=== PATIENT | male | born 1950 | race Caucasian/White ===

== ENCOUNTER 2016-10-20 16:41 | Emergency (ER) | payer MEDICARE, MEDICAID ==
--- NOTE | 2016-10-20 17:03 | ER Document Report ---
ED Medical Screen (RME) - General Chief Complaint: Urinary Problem Stated Complaint: URINARY PROBLEM Notes: urinary complaint hasnt peed since 9am difficulty initiating a stream x 7 days I have greeted and performed a rapid initial assessment of this patient. A comprehensive ED assessment and evaluation of the patient, analysis of test results and completion of the medical decision making process will be conducted by additional ED providers.
[2016-10-20 18:10] LABS: APPEARANCE,URINE SLIGHTLY-CLOUDY; BILIRUBIN,URINE NEGATIVE (NEGATIVE); GLUCOSE, URINE NEGATIVE (NEGATIVE); KETONES,URINE NEGATIVE (NEGATIVE); LEUKOCYTE ESTERASE,URINE NEGATIVE (NEGATIVE); NITRITE,URINE NEGATIVE (NEGATIVE); PROTEIN,URINE NEGATIVE (NEGATIVE); URINE SPECIFIC GRAVITY 1.021; UROBILINOGEN,URINE NEGATIVE mg/dL (<2.0)
[2016-10-20 18:58] LABS: ABSOLUTE EOSINOPHILS # (AUTO) 0.1 10^3/uL (0.0-0.6); ABSOLUTE MONOCYTES (AUTO) 0.6 10^3/uL (0.1-1.4); ABSOLUTE NEUT (AUTO) 3.2 10^3/uL (1.7-8.2); BASOPHILS % (AUTO) 0.7 % (0-2); EOSINOPHILS % (AUTO) 1.1 % (0-6); HEMATOCRIT 44.6 % (37.9-51.0); HEMOGLOBIN 15.2 g/dL (13.5-17.0); LYMPHOCYTES % (AUTO) 34.8 % (13-45); MEAN CORPUSCULAR HEMOGLOBIN 32.6 pg (27.0-33.4); MEAN CORPUSCULAR HGB CONC 34.2 g/dL (32.0-36.0); MEAN CORPUSCULAR VOLUME 96 fl (80-97); MONOCYTES % (AUTO) 9.7 % (3-13); RED BLOOD COUNT 4.67 10^6/uL (4.35-5.55); RED CELL DISTRIBUTION WIDTH 13.5 % (11.5-14.0); SEGMENTED NEUTROPHILS % (AUTO) 53.7 % (42-78); WHITE BLOOD COUNT 5.9 10^3/uL (4.0-10.5)
--- NOTE | 2016-10-20 19:01 | ER Document Report ---
ED General - General Chief Complaint: Urinary Retention Stated Complaint: URINARY PROBLEM Mode of Arrival: Ambulatory Information source: Patient, Relative, Dr. Office Notes: 66-year-old male no previous history of urinary retention presents after primary care physician sent him in for evaluation for urinary tract. pt denies any fevers or chills nausea or vomtiing. pt notes that there is pressure sensation in the suprapubic region. TRAVEL OUTSIDE OF THE [place] IN LAST 30 DAYS: No - HPI Onset: Just prior to arrival Onset/Duration: Persistent Quality of pain: Achy, Pressure Severity: Mild Pain Level: 1 Associated symptoms: None Exacerbated by: Denies Relieved by: Denies Similar symptoms previously: No Recently seen / treated by doctor: Yes - Related Data Allergies/Adverse Reactions: No Known Allergies Allergy (Unverified 10/20/16 17:01) Past Medical History - Social History Smoking Status: Never Smoker Cigarette use (# per day): No Chew tobacco use (# tins/day): No Smoking Education Provided: No Frequency of alcohol use: None Drug Abuse: None Family History: Reviewed & Not Pertinent Patient has suicidal ideation: No Patient has homicidal ideation: No Renal/ Medical History: Denies: Hx Peritoneal Dialysis Review of Systems - Review of Systems Notes: REVIEW OF SYSTEMS: CONSTITUTIONAL : Denies fever, chills, or sweats. Denies recent illness. EENT: Denies eye, ear, throat, or mouth pain or symptoms. Denies nasal or sinus congestion or discharge. Denies throat, tongue, or mouth swelling or difficulty swallowing. CARDIOVASCULAR: Denies chest pain. Denies palpitations or racing or irregular heart beat. Denies ankle edema. RESPIRATORY: Denies cough, cold, or chest congestion. Denies shortness of breath, difficulty breathing, or wheezing. GASTROINTESTINAL: Denies abdominal pain or distention. Denies nausea, vomiting , or diarrhea. Denies blood in vomitus, stools, or per rectum. Denies black, tarry stools. Denies constipation. GENITOURINARY: admits ot urinary retention MUSCULOSKELETAL: Denies back or neck pain or stiffness. Denies joint pain or swelling. SKIN: Denies rash, lesions or sores. HEMATOLOGIC : Denies easy bruising or bleeding. LYMPHATIC: Denies swollen, enlarged glands. NEUROLOGICAL: Denies confusion or altered mental status. Denies passing out or loss of consciousness. Denies dizziness or lightheadedness. Denies headache. Denies weakness or paralysis or loss of use of either side. Denies problems with gait or speech. Denies sensory loss, numbness, or tingling. Denies seizures. PSYCHIATRIC: Denies anxiety or stress. Denies depression, suicidal ideation, or homicidal ideation. ALL OTHER SYSTEMS REVIEWED AND NEGATIVE. Dictation was performed using [employer] voice recognition software PHYSICAL EXAMINATION: GENERAL: Well-appearing, well-nourished and in no acute distress. HEAD: Atraumatic, normocephalic. EYES: Pupils equal round and reactive to light, extraocular movements intact, sclera anicteric, conjunctiva are normal. ENT: Nares patent, oropharynx clear without exudates. Moist mucous membranes. NECK: Normal range of motion, supple without lymphadenopathy LUNGS: Breath sounds clear to auscultation bilaterally and equal. No wheezes rales or rhonchi. HEART: Regular rate and rhythm without murmurs ABDOMEN: Soft, suprapubic pressure , darling placed 200 cc urine return Musculoskeletal: Normal range of motion, no pitting or edema. No cyanosis. NEUROLOGICAL: Cranial nerves grossly intact. Normal speech, normal gait. Normal sensory, motor exams PSYCH: Normal mood, normal affect. SKIN: Warm, Dry, normal turgor, no rashes or lesions noted. Physical Exam - Vital signs Vitals: Temp Pulse Resp BP Pulse Ox 98 F 70 20 136/104 H 100 10/20/16 17:02 10/20/16 17:02 10/20/16 17:02 10/20/16 17:02 10/20/16 17:02 Course - Re-evaluation Re-evalutation: 10/20/16 19:01 pt immediately placed darling 10/20/16 19:48 Approximately 200 mL of urine was removed, patient was sent for CT lab work urinalysis which noted no other significant abnormalities. Patient will be given a leg Darling bag as instructed them on instructions of how to use as well as very strict return precautions. Patient will be given follow-up with primary care physician and urology for removal of bag in 2-3 days I have explained that this may lead to a urinary tract infection as well After performing a Medical Screening Examination, I estimate there is LOW risk for ACUTE APPENDICITIS, BOWEL OBSTRUCTION, ACUTE CHOLECYSTITIS, PERFORATED DIVERTICULITIS, INCARCERATED HERNIA, PANCREATITIS, or PERFORATED ULCER, thus I consider the discharge disposition reasonable. Also, there is no evidence or peritonitis, sepsis, or toxicity. The patient and I have discussed the diagnosis and risks, and we agree with discharging home with close follow-up with the understanding that symptoms and presentations can change. We also discussed returning to the Emergency Department immediately if new or worsening symptoms occur. We have discussed the symptoms which are most concerning (e.g., bloody stool, fever, changing or worsening pain, intractable vomiting - standard verbal up date) that necessitate immediate return. - Vital Signs Vital signs: Temp Pulse Resp BP Pulse Ox 98 F 70 20 136/104 H 100 10/20/16 17:02 10/20/16 17:02 10/20/16 17:02 10/20/16 17:02 10/20/16 17:02 - Laboratory Result Diagrams: 10/20/16 18:40 10/20/16 18:40 Laboratory results interpreted by me: 10/20/16 10/20/16 17:55 18:40 BUN 28 H Urine Ascorbic Acid 40 H - Diagnostic Test Radiology reviewed: Image reviewed, Reports reviewed Discharge - Discharge Clinical Impression: Urinary retention Condition: Stable Disposition: HOME, SELF-CARE Instructions: Darling Catheter Care ([facility]) Referrals: MEGAN LEA FNP-C [Primary Care Provider] - Follow up in 3-5 days HOWARD TAVERAS MD [ACTIVE STAFF] - Follow up in 3-5 days
[2016-10-20 19:16] LABS: ALANINE AMINOTRANSFERASE 65 U/L (21-72); ALBUMIN 3.9 g/dL (3.5-5.0); ALKALINE PHOSPHATASE 70 U/L (38-126); ANION GAP 12 (5-19); ASPARTATE AMINO TRANSFERASE 26 U/L (17-59); BILIRUBIN,TOTAL 0.4 mg/dL (0.2-1.3); BLOOD UREA NITROGEN 28 mg/dL (7-20); CALCIUM 9.6 mg/dL (8.4-10.2); CARBON DIOXIDE 26 mmol/L (22-30); CHLORIDE 103 mmol/L (98-107); CREATININE RESULT 0.94 mg/dL (0.52-1.25); GLUCOSE 87 mg/dL (75-110); POTASSIUM 4.6 mmol/L (3.6-5.0); SODIUM 141.1 mmol/L (137-145); TOTAL PROTEIN 7.4 g/dL (6.3-8.2)
[2016-10-20 22:25] VITALS: BP 138/95
== END 2016-10-20 20:20 | disposition home or self-care (01) ==
LOC: ER 16:41
DX: R33.9 Retention of urine, unspecified (principal)
CPT/HCPCS: 36415; 51702; 74176; 80053; 81001; 85025; 87086; 99284

== ENCOUNTER 2017-10-09 19:51 | Emergency (ER) | payer MEDICARE, MEDICAID ==
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
[2017-10-10 00:51] VITALS: BP 104/71
== END 2017-10-10 09:59 | disposition home or self-care (01) ==
LOC: ER 19:51
DX: S00.212A Abrasion of left eyelid and periocular area, initial encounter (principal); Y04.0XXA Assault by unarmed brawl or fight, initial encounter; Y92.199 Unspecified place in other specified residential institution as the place of occurrence of the external cause; F03.91 Unspecified dementia, unspecified severity, with behavioral disturbance
CPT/HCPCS: 99284

== ENCOUNTER 2017-10-11 13:04 | Emergency (ER) | payer MEDICARE, MEDICAID ==
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
--- NOTE | 2017-10-11 14:30 | RADIOLOGY REPORT (SQ) ---
EXAM DESCRIPTION: KNEE RIGHT 4 VIEWS COMPLETED DATE/TIME: 10/11/2017 2:21 pm REASON FOR STUDY: knees gave out, yellow bruise right knee COMPARISON: None. NUMBER OF VIEWS: Four views. TECHNIQUE: AP, lateral, and both oblique radiographic images acquired of the right knee. LIMITATIONS: None. FINDINGS: MINERALIZATION: Normal. BONES: No acute fracture or dislocation. No worrisome bone lesions. JOINT: No effusion. SOFT TISSUES: No soft tissue swelling. No radio-opaque foreign body. OTHER: No other significant finding. IMPRESSION: NEGATIVE STUDY OF THE RIGHT KNEE. NO RADIOGRAPHIC EVIDENCE OF ACUTE INJURY. TECHNICAL DOCUMENTATION: JOB ID: [id number] [employer]- All Rights Reserved
--- NOTE | 2017-10-11 14:31 | RADIOLOGY REPORT (SQ) ---
EXAM DESCRIPTION: CHEST PA/LAT COMPLETED DATE/TIME: 10/11/2017 2:21 pm REASON FOR STUDY: cough COMPARISON: None. EXAM PARAMETERS: NUMBER OF VIEWS: two views TECHNIQUE: Digital Frontal and Lateral radiographic views of the chest acquired. RADIATION DOSE: NA LIMITATIONS: none FINDINGS: LUNGS AND PLEURA: Elevated right hemidiaphragm. No opacities, masses or pneumothorax. No pleural effusion. MEDIASTINUM AND HILAR STRUCTURES: No masses or contour abnormalities. HEART AND VASCULAR STRUCTURES: Heart normal size. No evidence for failure. BONES: No acute findings. HARDWARE: None in the chest. OTHER: No other significant finding. IMPRESSION: NO ACUTE RADIOGRAPHIC FINDING IN THE CHEST. TECHNICAL DOCUMENTATION: JOB ID: [id number] [employer]- All Rights Reserved
--- NOTE | 2017-10-11 14:40 | RADIOLOGY REPORT (SQ) ---
EXAM DESCRIPTION: CT HEAD WITHOUT COMPLETED DATE/TIME: 10/11/2017 2:31 pm REASON FOR STUDY: fall, head injury COMPARISON: None. TECHNIQUE: Axial images acquired through the brain without intravenous contrast. Images reviewed wi th bone, brain and subdural windows. Images stored on PACS. All CT scanners at this facility use dose modulation, iterative reconstruction, and/or weight based d osing when appropriate to reduce radiation dose to as low as reasonably achievable (ALARA). [facility]: Dose Right [facility]: CareDose [facility]: Dose Right [facility]: Teradose 4D [facility]: Smart [employer] RADIATION DOSE: CT Rad equipment meets quality standard of care and radiation dose reduction techniq ues were employed. CTDIvol: 28.0 mGy. DLP: 690 mGy-cm.mGy. LIMITATIONS: None. FINDINGS: VENTRICLES: Prominent. CEREBRUM: No masses. No hemorrhage. No midline shift. Areas of low density in the white matter mos t likely due to chronic micro-vascular ischemic change. No evidence for acute infarction. CEREBELLUM: No masses. No hemorrhage. No alteration of density. No evidence for acute infarction. EXTRAAXIAL SPACES: Age-related involutional change. No fluid collections. No masses. ORBITS AND GLOBE: No intra- or extraconal masses. Normal contour of globe without masses. CALVARIUM: No fracture. PARANASAL SINUSES: No fluid or mucosal thickening. SOFT TISSUES: Posterior scalp swelling. OTHER: No other significant finding. IMPRESSION: CHRONIC CHANGES OF ATROPHY AND MICROVASCULAR ISCHEMIA. POSTERIOR SCALP SWELLING. OTHER JC NO ACUTE PROCESS. EVIDENCE OF ACUTE STROKE: NO. TECHNICAL DOCUMENTATION: JOB ID: [id number] Quality ID # [id number]: Final reports with documentation of one or more dose reduction techniques (e.g., Au tomated exposure control, adjustment of the mA and/or kV according to patient size, use of iterative reconstruction technique) 2010 [employer]- All Rights Reserved
--- NOTE | 2017-10-11 14:42 | RADIOLOGY REPORT (SQ) ---
EXAM DESCRIPTION: CT CERVICAL SPINE WITHOUT COMPLETED DATE/TIME: 10/11/2017 2:31 pm REASON FOR STUDY: fall, head injury COMPARISON: None. TECHNIQUE: Axial images acquired through the cervical spine without intravenous contrast. Images re viewed with lung, soft tissue and bone windows. Reconstructed coronal and sagittal MPR images review ed. Images stored on PACS. All CT scanners at this facility use dose modulation, iterative reconstruction, and/or weight based d osing when appropriate to reduce radiation dose to as low as reasonably achievable (ALARA). [facility]: Dose Right [facility]: CareDose [facility]: Dose Right [facility]: Teradose 4D [facility]: [employer] RADIATION DOSE: CT Rad equipment meets quality standard of care and radiation dose reduction techniq ues were employed. CTDIvol: 22.6 mGy. DLP: 474 mGy-cm. mGy. LIMITATIONS: None. FINDINGS: ALIGNMENT: Anatomic. MINERALIZATION: Normal. VERTEBRAL BODIES: No fractures or dislocation. DISCS: No significant disc disease. FACETS, LATERAL MASSES, POSTERIOR ELEMENTS: No fractures. No dislocation. No acute findings. HARDWARE: None in the spine. VISUALIZED RIBS: No fractures. LUNG APICES AND SOFT TISSUES: No significant or acute findings. OTHER: No other significant finding. IMPRESSION: NO ACUTE OR SIGNIFICANT FINDINGS IN THE CERVICAL SPINE. TECHNICAL DOCUMENTATION: JOB ID: [id number] Quality ID # [id number]: Final reports with documentation of one or more dose reduction techniques (e.g., Au tomated exposure control, adjustment of the mA and/or kV according to patient size, use of iterative reconstruction technique) 2010 [email or web address]- All Rights Reserved
[2017-10-11] MEDS ORDERED: ALBUTEROL SULFATE 0.083% NEB 2.5 MG/3 ML AMPUL NEB ONE (14:48)
[2017-10-11 14:55] LABS: ABSOLUTE BASOPHILS # (AUTO) 0.1 10^3/uL (0.0-0.2); ABSOLUTE EOSINOPHILS # (AUTO) 0.1 10^3/uL (0.0-0.6); ABSOLUTE LYMPHOCYTES (AUTO) 1.3 10^3/uL (0.5-4.7); ABSOLUTE MONOCYTES (AUTO) 0.8 10^3/uL (0.1-1.4); ABSOLUTE NEUT (AUTO) 6.7 10^3/uL (1.7-8.2); BASOPHILS % (AUTO) 0.7 % (0-2); LYMPHOCYTES % (AUTO) 14.4 % (13-45); MEAN CORPUSCULAR HEMOGLOBIN 32.8 pg (27.0-33.4); MEAN CORPUSCULAR HGB CONC 34.8 g/dL (32.0-36.0); MEAN CORPUSCULAR VOLUME 94 fl (80-97); MONOCYTES % (AUTO) 9.2 % (3-13); PLATELET COUNT 186 10^3/uL (150-450); RED BLOOD COUNT 4.56 10^6/uL (4.35-5.55); RED CELL DISTRIBUTION WIDTH 13.2 % (11.5-14.0); SEGMENTED NEUTROPHILS % (AUTO) 74.7 % (42-78); TOTAL CELLS COUNTED % (AUTO) 100 %
[2017-10-11 15:12] LABS: ANION GAP 11 (5-19); BLOOD UREA NITROGEN 18 mg/dL (7-20); CALCIUM 10.1 mg/dL (8.4-10.2); CARBON DIOXIDE 26 mmol/L (22-30); CHLORIDE 103 mmol/L (98-107); GLUCOSE 108 mg/dL (75-110); POTASSIUM 4.5 mmol/L (3.6-5.0); SODIUM 140.4 mmol/L (137-145)
[2017-10-11 16:59] VITALS: BP 112/62
== END 2017-10-11 16:55 | disposition home or self-care (01) ==
LOC: ER 13:04
DX: S00.03XA Contusion of scalp, initial encounter (principal); W19.XXXA Unspecified fall, initial encounter; Y93.89 Activity, other specified; Y92.199 Unspecified place in other specified residential institution as the place of occurrence of the external cause; R05 Cough
CPT/HCPCS: 99285; 36415; 85025; 80048; 71046; 73564; 70450; 72125; A9270

== ENCOUNTER 2017-10-12 17:22 | Emergency (ER) | payer MEDICARE, MEDICAID ==
[2017-10-12] MEDS ORDERED: NORMAL SALINE 1000 ML 1,000 ML IV ONE (17:57)
[2017-10-12] MEDS ORDERED: IPRATROPIUM/ALBUTEROL 0.5-2.5 MG/3 ML AMPUL NEB ONE ×3 (18:05→23:08)
--- NOTE | 2017-10-12 18:06 | ER Document Report ---
ED Flu Like - General Chief Complaint: Flu Symptoms Stated Complaint: FLU LIKE SYMPTOMS Time Seen by Provider: 10/12/17 17:47 Mode of Arrival: Medic Information source: Transfer Record TRAVEL OUTSIDE OF THE [place] IN LAST 30 DAYS: No - HPI Notes: 67-year-old male with anxiety dementia and depression presents with flulike symptoms. Unclear when this started. From what I can tell it started yesterday. Patient has severe dementia so history is limited. Reading the transfer notes it says the patient was sent here 2 times prior for the same thing but reviewing records the first 1 was for an anger outbursts and a trauma evaluation the second time was for some weakness in his legs and a fall again for trauma. There was note of cough at that time. Apparently now the patient is having a significant fever and coughing is worse. Records provided by the [facility] are somewhat limited. Patient denies any pain to me though again history is somewhat limited due to his dementia and confusion. There has been no reported vomiting or diarrhea. - Related Data Allergies/Adverse Reactions: No Known Allergies Allergy (Verified 10/11/17 13:06) Past Medical History - Social History Smoking Status: Unknown if Ever Smoked Frequency of alcohol use: None Drug Abuse: None Family History: Reviewed & Not Pertinent Patient has suicidal ideation: No Patient has homicidal ideation: No Renal/ Medical History: Denies: Hx Peritoneal Dialysis Psychiatric Medical History: Reports: Hx Dementia, Hx Depression Physical Exam - Vital signs Vitals: Temp Pulse Resp BP Pulse Ox 100.2 F 125 H 26 H 127/90 H 88 L 10/12/17 17:31 10/12/17 17:31 10/12/17 17:31 10/12/17 17:31 10/12/17 17:31 Interpretation: Febrile - Notes Notes: GENERAL: VS as per nursing doc. Well-appearing, well-nourished and in no acute distress. Smiling and pleasant. Cough noted HEAD: Atraumatic, normocephalic. EYES: Sclera anicteric, no conjunctival injection or discharge. ENT: Nares patent, oropharynx clear without exudates, moist mucous membranes. NECK: Normal range of motion, supple without lymphadenopathy. LUNGS: Breath sounds coarse with rhonchi, very mild wheezing HEART: Tachycardic but regular rhythm without murmurs. ABDOMEN: Soft, non-tender. EXTREMITIES: No unilateral edema. No calf tenderness NEUROLOGICAL: Normal speech. Normal sensory and motor exams. No gross cerebellar abnormalities. PSYCH: Normal mood, normal affect. Oriented 1. Directable, pleasant and smiling. SKIN: Warm, dry. Course - Re-evaluation Re-evalutation: 10/12/17 21:12 Patient has a normal white blood cell count. PO2 in the 80s on 2 L/min nasal cannula. He is maintaining his oxygen saturations for the most part. We will go on and treat him for bronchitis/pneumonia at this point and further observe him with further breathing treatments as well as Solu-Medrol. 10/12/17 22:42 Patient has had multiple nebs in the emergency department. His wheezing does seem better, I can hear crackles now consistent with pneumonia. He does not use oxygen at the [facility]. We will watch his oxygen saturations if they decreased like I think they probably will, we will discuss admission with the hospitalist. 10/12/17 23:52 We waited some time after his last DuoNeb in the patient's PO2 was in the 60s on room air with an oxygen saturation of 92.5%. We will treat him with Levaquin such as this would be pneumonia. He has been given an inhaler in the emergency department with instructions on how to use as well as instructions for [facility]. We will finish a course of prednisone for him. He has been calm and cooperative here and passed a road test. - Vital Signs Vital signs: Temp Pulse Resp BP Pulse Ox 98.0 F 125 H 21 H 108/75 87 L 10/12/17 23:01 10/12/17 17:31 10/12/17 23:01 10/12/17 23:00 10/12/17 23:01 - Laboratory Result Diagrams: 10/12/17 18:15 10/12/17 18:15 Laboratory results interpreted by me: 10/12/17 10/12/17 10/12/17 18:15 18:15 18:15 Plt Count 144 L Lymphocytes % (Manual) 3 L ABG pO2 ABG HCO3 26.2 H ABG Total CO2 27.4 H ABG O2 Saturation Sodium 136.6 L Glucose 145 H 10/12/17 23:26 Plt Count Lymphocytes % (Manual) ABG pO2 62.0 L ABG HCO3 ABG Total CO2 ABG O2 Saturation 92.5 L Sodium Glucose - Diagnostic Test Radiology reviewed: Image reviewed - Atelectasis, no clear pneumonia, Reports reviewed Discharge - Discharge Clinical Impression: Bronchitis Condition: Good Disposition: HOME-SNF (ED ONLY) Additional Instructions: Use the albuterol inhaler 2 puffs every 6 hours while awake and as needed for wheezing or breathing difficulty. Expect fever for a few days despite us treating this illness like this is pneumonia with the antibiotic Levaquin. Though the flu tests are not perfect, your flu screen here was negative. Return for worsening or concern. May use Mucinex DM/Robitussin-DM or similar for cough. Stay well hydrated with clear liquids. Follow-up with your primary care provider in the next 24-48 hours. Prescriptions: Levofloxacin [Levaquin 750 mg Tablet] 750 mg PO DAILY #9 tablet Prednisone [Deltasone 20 mg Tablet] 2 tab PO DAILY 5 Days #10 tablet
[2017-10-12 18:47] LABS: ARTERIAL BLOOD H2CO3 1.18 mmol/L (1.05-1.35); ARTERIAL BLOOD HCO3 26.2 mmol/L (20-26); ARTERIAL BLOOD O2 SATURATION 96.3 % (94-98); ARTERIAL BLOOD PCO2 39.3 mmHg (35-45); ARTERIAL BLOOD PH 7.44 (7.35-7.45); ARTERIAL BLOOD PO2 80.5 mmHg (80-100); ARTERIAL BLOOD TOTAL CO2 27.4 mmol/L (23-27)
[2017-10-12 18:50] LABS: ARTERIAL BLOOD FIO2 2L; HEMATOCRIT 41.9 % (37.9-51.0); HEMOGLOBIN 14.4 g/dL (13.5-17.0); MEAN CORPUSCULAR HEMOGLOBIN 32.3 pg (27.0-33.4); MEAN CORPUSCULAR HGB CONC 34.3 g/dL (32.0-36.0); MEAN CORPUSCULAR VOLUME 94 fl (80-97); PLATELET COUNT 144 10^3/uL (150-450); RED BLOOD COUNT 4.44 10^6/uL (4.35-5.55); RED CELL DISTRIBUTION WIDTH 13.4 % (11.5-14.0); WHITE BLOOD COUNT 7.6 10^3/uL (4.0-10.5)
--- NOTE | 2017-10-12 19:00 | RADIOLOGY REPORT (SQ) ---
EXAM DESCRIPTION: CHEST PA/LAT COMPLETED DATE/TIME: 10/12/2017 6:41 pm REASON FOR STUDY: Fever COMPARISON: 10/11/2017. EXAM PARAMETERS: NUMBER OF VIEWS: two views TECHNIQUE: Digital Frontal and Lateral radiographic views of the chest acquired. RADIATION DOSE: NA LIMITATIONS: none FINDINGS: LUNGS AND PLEURA: Low lung volumes. Faint streaky densities in the lung bases. No pleura l effusion. No pneumothorax. Incidental azygos lobe. MEDIASTINUM AND HILAR STRUCTURES: No masses or contour abnormalities. HEART AND VASCULAR STRUCTURES: Heart normal size. No evidence for failure. BONES: No acute findings. HARDWARE: None in the chest. OTHER: No other significant finding. IMPRESSION: BASILAR ATELECTASIS. TECHNICAL DOCUMENTATION: JOB ID: [id number]- All Rights Reserved
[2017-10-12 19:06] LABS: ALANINE AMINOTRANSFERASE 58 U/L (21-72); ALBUMIN 4.2 g/dL (3.5-5.0); ALKALINE PHOSPHATASE 68 U/L (38-126); ANION GAP 13 (5-19); ASPARTATE AMINO TRANSFERASE 55 U/L (17-59); BILIRUBIN,DIRECT 0.2 mg/dL (0.0-0.4); BILIRUBIN,TOTAL 0.5 mg/dL (0.2-1.3); BLOOD UREA NITROGEN 19 mg/dL (7-20); CALCIUM 9.3 mg/dL (8.4-10.2); CARBON DIOXIDE 25 mmol/L (22-30); CHLORIDE 99 mmol/L (98-107); GLUCOSE 145 mg/dL (75-110); INTERNATIONAL RATION (INR) 1.03; POTASSIUM 4.4 mmol/L (3.6-5.0); PROTHROMBIN TIME 14.2 SEC (11.4-15.4); SODIUM 136.6 mmol/L (137-145); TOTAL PROTEIN 7.2 g/dL (6.3-8.2)
[2017-10-12 19:17] LABS: ABSOLUTE LYMPHOCYTES# (MANUAL) 0.5 10^3/uL (0.5-4.7); ABSOLUTE MONOCYTES # (MANUAL) 0.9 10^3/uL (0.1-1.4); ABSOLUTE NEUTROPHILS# (MANUAL) 6.2 10^3/uL (1.7-8.2); BAND NEUTROPHILS % (MANUAL) 4 % (3-5); BASOPHILS % (MANUAL) 0 % (0-2); EOSINOPHILS % (MANUAL) 0 % (0-6); LYMPHOCYTES % (MANUAL) 3 % (13-45); MONOCYTES % (MANUAL) 12 % (3-13); SEGMENTED NEUTROPHILS % (MAN) 78 % (42-78); TOTAL CELLS COUNTED 100
[2017-10-12 19:18] LABS: PLATELET COMMENT ADEQUATE; RBC MORPHOLOGY COMMENT NORMO-CYTIC/CHROMIC
[2017-10-12 19:21] LABS: A TYPE INFLUENZA AG NEGATIVE (NEGATIVE); B INFLUENZA AG NEGATIVE (NEGATIVE)
[2017-10-12] MEDS ORDERED: LEVOFLOXACIN 750 MG TABLET PO ONE (20:44)
[2017-10-12] MEDS ORDERED: ALBUTEROL SULFATE HFA (90 MCG/PUFF) 8 GM MDI (1 MDI/ER DISP) IH PRN (20:51)
[2017-10-12] MEDS ORDERED: ACETAMINOPHEN 325 MG TABLET PO ONE (20:51)
[2017-10-12] MEDS ORDERED: ACETAMINOPHEN SUSP 160 MG/5 ML ORAL SYRING PO ONE (20:52)
[2017-10-12] MEDS ORDERED: METHYLPREDNISOLONE INJ 125 MG/2 ML SDV IV ONE (21:06)
[2017-10-12 23:46] LABS: ARTERIAL BLOOD H2CO3 1.07 mmol/L (1.05-1.35); ARTERIAL BLOOD HCO3 22.8 mmol/L (20-26); ARTERIAL BLOOD O2 SATURATION 92.5 % (94-98); ARTERIAL BLOOD PCO2 35.6 mmHg (35-45); ARTERIAL BLOOD PH 7.43 (7.35-7.45); ARTERIAL BLOOD TOTAL CO2 23.9 mmol/L (23-27)
[2017-10-12 23:47] LABS: ARTERIAL BLOOD FIO2 ROOM AIR
[2017-10-13 02:27] VITALS: BP 104/79
== END 2017-10-13 02:47 ==
LOC: ER 17:22
DX: J40 Bronchitis, not specified as acute or chronic (principal); F03.90 Unspecified dementia, unspecified severity, without behavioral disturbance, psychotic disturbance, mood disturbance, and anxiety; R50.9 Fever, unspecified; R05 Cough; R00.0 Tachycardia, unspecified
CPT/HCPCS: 94640 ×2; 99284; 96361; 96374; 36415; 87040; 82803; 85025; 85610; 87077; 80053; 83605; 87804; 71046; J2930; J7030; A9270 ×3; J3490; 87186; J7620

== ENCOUNTER 2017-10-29 18:54 | Emergency (ER) | payer MEDICARE, MEDICAID ==
[2017-10-29 19:10] VITALS: BP 125/89
--- NOTE | 2017-10-29 20:29 | ER Document Report ---
ED Medical Screen (RME) - General Chief Complaint: Diarrhea Stated Complaint: DIARRHEA Time Seen by Provider: 10/29/17 20:27 Mode of Arrival: Medic Information source: Patient, Relative Notes: 67-year-old male presents to ED for diarrhea all day. He is a resident at [facility]. He is on Levaquin and Tamiflu at [facility]. He denies any pain or discomfort at this time. He denies any nausea or vomiting at this time. Lung sounds are clear bowel sounds are active. I have greeted and performed a rapid initial assessment of this patient. A comprehensive ED assessment and evaluation of the patient, analysis of test results and completion of medical decision making process will be conducted by an additional ED providers. TRAVEL OUTSIDE OF THE [place] IN LAST 30 DAYS: No - Related Data Allergies/Adverse Reactions: No Known Allergies Allergy (Verified 10/29/17 18:56) Past Medical History Renal/ Medical History: Denies: Hx Peritoneal Dialysis Psychiatric Medical History: Reports: Hx Dementia, Hx Depression Physical Exam - Vital signs Vitals: Temp Pulse Resp BP Pulse Ox 98.5 F 116 H 20 125/89 H 95 10/29/17 19:04 10/29/17 19:04 10/29/17 19:04 10/29/17 19:04 10/29/17 19:04 Course - Vital Signs Vital signs: Temp Pulse Resp BP Pulse Ox 98.5 F 116 H 20 125/89 H 95 10/29/17 19:04 10/29/17 19:04 10/29/17 19:04 10/29/17 19:04 10/29/17 19:04
[2017-10-29 21:15] LABS: ABSOLUTE LYMPHOCYTES (AUTO) 1.3 10^3/uL (0.5-4.7); ABSOLUTE MONOCYTES (AUTO) 0.7 10^3/uL (0.1-1.4); ABSOLUTE NEUT (AUTO) 4.9 10^3/uL (1.7-8.2); BASOPHILS % (AUTO) 0.5 % (0-2); EOSINOPHILS % (AUTO) 0.6 % (0-6); HEMOGLOBIN 15.6 g/dL (13.5-17.0); LYMPHOCYTES % (AUTO) 18.4 % (13-45); MEAN CORPUSCULAR HEMOGLOBIN 32.8 pg (27.0-33.4); MEAN CORPUSCULAR HGB CONC 34.8 g/dL (32.0-36.0); MEAN CORPUSCULAR VOLUME 94 fl (80-97); PLATELET COUNT 279 10^3/uL (150-450); RED BLOOD COUNT 4.78 10^6/uL (4.35-5.55); RED CELL DISTRIBUTION WIDTH 13.1 % (11.5-14.0); SEGMENTED NEUTROPHILS % (AUTO) 70.5 % (42-78); TOTAL CELLS COUNTED % (AUTO) 100 %
[2017-10-29 21:34] LABS: ALANINE AMINOTRANSFERASE 91 U/L (21-72); ALBUMIN 3.9 g/dL (3.5-5.0); ALKALINE PHOSPHATASE 68 U/L (38-126); ANION GAP 11 (5-19); ASPARTATE AMINO TRANSFERASE 43 U/L (17-59); BILIRUBIN,DIRECT 0.4 mg/dL (0.0-0.4); BILIRUBIN,TOTAL 0.4 mg/dL (0.2-1.3); BLOOD UREA NITROGEN 10 mg/dL (7-20); CARBON DIOXIDE 28 mmol/L (22-30); CHLORIDE 98 mmol/L (98-107); GLUCOSE 118 mg/dL (75-110); POTASSIUM 3.8 mmol/L (3.6-5.0); SODIUM 137.4 mmol/L (137-145); TOTAL PROTEIN 7.8 g/dL (6.3-8.2)
--- NOTE | 2017-10-29 23:18 | ER Document Report ---
ED General - General Chief Complaint: Diarrhea Stated Complaint: DIARRHEA Time Seen by Provider: 10/29/17 20:27 Mode of Arrival: Medic Notes: 67-year-old male brought to the emergency department by EMS from an assisted living facility accompanied by his sister for suspicion of C. difficile. Patient has apparently been having diarrhea today. Patient cannot provide me with any other history and the [facility] did not send in any other history either. Patient does not recall having diarrhea, patient denies any pain. Patient has not had a bowel movement since he arrived in the emergency department 4 hours ago. Patient has been apparently on Tamiflu and Levaquin recently. Diagnosed with the flu within the past 2 weeks. TRAVEL OUTSIDE OF THE [place] IN LAST 30 DAYS: No - Related Data Allergies/Adverse Reactions: No Known Allergies Allergy (Verified 10/29/17 18:56) Past Medical History - General Information source: Patient, Relative - Social History Smoking Status: Former Smoker Chew tobacco use (# tins/day): No Frequency of alcohol use: None Drug Abuse: None Lives with: Other - Assisted-living Family History: Reviewed & Not Pertinent Patient has suicidal ideation: No Patient has homicidal ideation: No Renal/ Medical History: Denies: Hx Peritoneal Dialysis Psychiatric Medical History: Reports: Hx Dementia, Hx Depression Review of Systems - Review of Systems Constitutional: No symptoms reported Gastrointestinal: See HPI, Diarrhea. denies: Vomiting -: Yes All other systems reviewed and negative Physical Exam - Vital signs Vitals: Temp Pulse Resp BP Pulse Ox 98.5 F 116 H 20 125/89 H 95 10/29/17 19:04 10/29/17 19:04 10/29/17 19:04 10/29/17 19:04 10/29/17 19:04 Notes: Tachycardic on arrival, no current tachycardia, heart rate approximately 80 at the bedside. - Notes Notes: GENERAL: Alert, pleasant. No acute distress. HEAD: Normocephalic, atraumatic EYES: Pupils equal, round and reactive to light, extraocular movements intact. ENT: Oral mucosa moist, tongue midline. NECK: Full range of motion, supple, trachea midline. LUNGS: Clear to auscultation bilaterally, no wheezes, rales or rhonchi, no respiratory distress. HEART: Regular rate and rhythm, no murmurs, gallops, rubs. ABDOMEN: Soft, nontender, nondistended, bowel sounds present in all 4 quadrants. EXTREMITIES: Moves all 4 extremities spontaneously, no edema, radial and dorsalis pedis pulses 2/4 bilaterally. No cyanosis. NEUROLOGICAL: Alert and oriented to person and place, not to time, this is baseline per sister, normal speech, no facial droop biceps and patellar DTRs 2+ bilaterally. PSYCH: Normal mood, normal affect. SKIN: Warm, Dry, normal turgor, no rashes or lesions noted. Course - Re-evaluation Re-evalutation: 10/29/17 23:18 CBC unremarkable, CMP unremarkable, no evidence of dehydration, patient has not been able to provide a stool sample since he arrived in the emergency department for an half hours ago. This makes it highly unlikely that he has C. difficile. Is more likely that he is either experiencing a medication side effect from the Levaquin and the Tamiflu or he is at the tail end of the influenza illness that he was diagnosed with recently. Either way patient does not need antibiotics for C. difficile. Patient will be sent back to the assisted living facility with a stool specimen cup. - Vital Signs Vital signs: Temp Pulse Resp BP Pulse Ox 98.5 F 116 H 20 125/89 H 95 10/29/17 19:04 10/29/17 19:04 10/29/17 19:04 10/29/17 19:04 10/29/17 19:04 - Laboratory Result Diagrams: 10/29/17 20:40 10/29/17 20:40 Laboratory results interpreted by me: 10/29/17 20:40 Glucose 118 H ALT 91 H Discharge - Discharge Clinical Impression: Diarrhea Qualifiers: Diarrhea type: unspecified type Qualified Code(s): R19.7 - Diarrhea, unspecified Condition: Stable Disposition: HOME, SELF-CARE Additional Instructions: Today your white blood cell count was normal and you did not have diarrhea while in the emergency department. This makes it very unlikely that she would have C. difficile diarrhea. If you have another loose bowel movement please collect it and put it in the cup. The assisted living facility can send it to the lab to have it tested for C. difficile diarrhea. Please return for fevers, blood in the stool, altered mental status or any new or concerning symtpoms. Forms: Follow-Up Laboratory Testing Referrals: LEONIE DAMICO MD [ACTIVE STAFF] - Follow up as needed
== END 2017-10-30 00:09 | disposition home or self-care (01) ==
LOC: ER 18:54
DX: R19.7 Diarrhea, unspecified (principal); Z87.891 Personal history of nicotine dependence
CPT/HCPCS: 36415; 80053; 85025; 99285

== ENCOUNTER 2017-11-05 09:10 | Emergency (ER) | payer MEDICARE, MEDICAID ==
--- NOTE | 2017-11-05 09:59 | RADIOLOGY REPORT (SQ) ---
EXAM DESCRIPTION: CT HEAD WITHOUT COMPLETED DATE/TIME: 11/05/2017 9:52 am REASON FOR STUDY: fall COMPARISON: 10/11/2017 TECHNIQUE: Axial images acquired through the brain without intravenous contrast. Images reviewed wi th bone, brain and subdural windows. Images stored on PACS. All CT scanners at this facility use dose modulation, iterative reconstruction, and/or weight based d osing when appropriate to reduce radiation dose to as low as reasonably achievable (ALARA). [facility]: Dose Right [facility]: CareDose [facility]: Dose Right [facility]: Teradose 4D [facility]: [employer] RADIATION DOSE: CT Rad equipment meets quality standard of care and radiation dose reduction techniq ues were employed. CTDIvol: 64.6 mGy. DLP: 1421 mGy-cm.mGy. LIMITATIONS: Patient motion. FINDINGS: VENTRICLES: Prominent. CEREBRUM: No masses. No hemorrhage. No midline shift. Areas of low density in the white matter mos t likely due to chronic micro-vascular ischemic change. No evidence for acute infarction. CEREBELLUM: No masses. No hemorrhage. No alteration of density. No evidence for acute infarction. EXTRAAXIAL SPACES: Age-related involutional change. No fluid collections. No masses. ORBITS AND GLOBE: No intra- or extraconal masses. Normal contour of globe without masses. CALVARIUM: No fracture. PARANASAL SINUSES: No fluid or mucosal thickening. SOFT TISSUES: No mass or hematoma. OTHER: No other significant finding. IMPRESSION: CHRONIC CHANGES OF ATROPHY AND MICROVASCULAR ISCHEMIA. NO ACUTE PROCESS. EVIDENCE OF ACUTE STROKE: NO. TECHNICAL DOCUMENTATION: JOB ID: [id number] Quality ID # [id number]: Final reports with documentation of one or more dose reduction techniques (e.g., Au tomated exposure control, adjustment of the mA and/or kV according to patient size, use of iterative reconstruction technique) 2010 [employer]- All Rights Reserved
--- NOTE | 2017-11-05 10:50 | ER Document Report ---
ED General - General Chief Complaint: Fall Stated Complaint: FALL LEG PAIN Time Seen by Provider: 11/05/17 09:54 TRAVEL OUTSIDE OF THE [place] IN LAST 30 DAYS: No - HPI Patient complains to provider of: Unwitnessed fall Notes: Patient coming in from local assisted living facility for unwitnessed fall. Patient was found ground. Patient has obvious abrasion to the nasal bridge. Otherwise patient resting comfortably. Patient has no complaints denies any bony point tenderness. Moving all 4 extremities. Most of the HPI is obtained by EMS which patient confirms story of unwitnessed fall. - Related Data Allergies/Adverse Reactions: No Known Allergies Allergy (Verified 10/29/17 18:56) Past Medical History - Social History Smoking Status: Unknown if Ever Smoked Chew tobacco use (# tins/day): No Frequency of alcohol use: None Drug Abuse: None Family History: Reviewed & Not Pertinent Patient has suicidal ideation: No Patient has homicidal ideation: No Renal/ Medical History: Denies: Hx Peritoneal Dialysis Psychiatric Medical History: Reports: Hx Dementia, Hx Depression Review of Systems - Review of Systems -: Yes ROS unobtainable due to patient's medical condition - Dementia Physical Exam - Vital signs Vitals: Temp Pulse Resp BP Pulse Ox 98.0 F 91 16 122/79 92 11/05/17 09:26 11/05/17 09:26 11/05/17 09:26 11/05/17 09:26 11/05/17 09:26 Course - Re-evaluation Re-evalutation: 11/05/17 11:01 CT of the head was negative. Patient has Steri-Strips placed to his nose for his abrasion. Patient will be discharged home. - Vital Signs Vital signs: Temp Pulse Resp BP Pulse Ox 98.0 F 91 16 122/79 92 11/05/17 09:26 11/05/17 09:26 11/05/17 09:26 11/05/17 09:26 11/05/17 09:26 Discharge - Discharge Clinical Impression: Nasal bridge abrasion Fall Qualifiers: Encounter type: initial encounter Qualified Code(s): W19.XXXA - Unspecified fall, initial encounter Condition: Good Disposition: HOME, SELF-CARE Instructions: Abrasions of the Face ([facility]), Care of Steri-Strip Closure ([facility]) Additional Instructions: Patient was seen and evaluated at the fall. Physical examination did not reveal any abrasion to the patient's nose which was cared for by Steri-Strips. Because of head traumaPathology except for a slight we did CAT scan the patient' s head which was negative. Patient will be discharged back to her facility please monitor the patient for falls create a safe environment to prevent falls.
[2017-11-05 11:39] VITALS: BP 123/90
== END 2017-11-05 11:30 | disposition home or self-care (01) ==
LOC: ER 09:10
DX: S00.31XA Abrasion of nose, initial encounter (principal); W19.XXXA Unspecified fall, initial encounter; Y92.099 Unspecified place in other non-institutional residence as the place of occurrence of the external cause; F03.90 Unspecified dementia, unspecified severity, without behavioral disturbance, psychotic disturbance, mood disturbance, and anxiety
CPT/HCPCS: 70450; 99284

== ENCOUNTER 2017-11-19 10:29 | Emergency (ER) | payer MEDICARE, MEDICAID ==
--- NOTE | 2017-11-19 11:20 | ER Document Report ---
ED General - General Chief Complaint: Arm Injury Stated Complaint: FALL HEAD PAIN Time Seen by Provider: 11/19/17 10:38 Notes: He states that he fell. Denies any pain other than some mild pain in the scalp. No loss consciousness. No other injuries. Patient transported by ambulance. Underlying dementia. TRAVEL OUTSIDE OF THE [place] IN LAST 30 DAYS: No - HPI Onset: Just prior to arrival Severity: None Pain Level: Denies Associated symptoms: None - Related Data Allergies/Adverse Reactions: No Known Allergies Allergy (Verified 11/19/17 11:16) Past Medical History - General Information source: [facility] Records - Social History Smoking Status: Unknown if Ever Smoked Chew tobacco use (# tins/day): No Frequency of alcohol use: None Drug Abuse: None Lives with: [facility] Family History: Reviewed & Not Pertinent Patient has suicidal ideation: No Patient has homicidal ideation: No Renal/ Medical History: Denies: Hx Peritoneal Dialysis Psychiatric Medical History: Reports: Hx Dementia, Hx Depression Review of Systems - Review of Systems Constitutional: No symptoms reported EENT: No symptoms reported Cardiovascular: No symptoms reported Respiratory: No symptoms reported Gastrointestinal: No symptoms reported Genitourinary: No symptoms reported Male Genitourinary: No symptoms reported Musculoskeletal: No symptoms reported Skin: No symptoms reported Hematologic/Lymphatic: No symptoms reported Neurological/Psychological: No symptoms reported Physical Exam - Vital signs Vitals: Temp Pulse Resp BP Pulse Ox 98.1 F 104 H 18 111/76 95 11/19/17 11:13 11/19/17 11:13 11/19/17 11:13 11/19/17 11:13 11/19/17 11:13 Interpretation: Normal - General General appearance: Appears well, Alert - HEENT Head: Normocephalic, Other - Small contusion on the right occipital parietal area of the scalp. No obvious lacerations. Eyes: Normal Pupils: PERRL - Respiratory Respiratory status: No respiratory distress Chest status: Nontender Breath sounds: Normal Chest palpation: Normal - Cardiovascular Rhythm: Regular Heart sounds: Normal auscultation Murmur: No - Abdominal Inspection: Normal Distension: No distension Bowel sounds: Normal Tenderness: Nontender Organomegaly: No organomegaly - Back Back: Normal, Nontender - Extremities General upper extremity: Normal inspection, Nontender, Normal color, Normal ROM , Normal temperature General lower extremity: Normal inspection, Nontender, Normal color, Normal ROM , Normal temperature, Normal weight bearing. No: Kala's sign - Neurological Neuro grossly intact: Yes Cognition: Normal Orientation: AAOx4 Misenheimer Coma Scale Eye Opening: Spontaneous Misenheimer Coma Scale Verbal: Oriented Suzanna Coma Scale Motor: Obeys Commands Misenheimer Coma Scale Total: 15 Speech: Normal Motor strength normal: LUE, RUE, LLE, RLE Sensory: Normal - Psychological Associated symptoms: Normal affect, Normal mood - Skin Skin Temperature: Warm Skin Moisture: Dry Skin Color: Normal Course - Re-evaluation Re-evalutation: 11/19/17 12:14 CT scan negative. Patient does not manifest any other signs of trauma. No suturable lacerations. Will DC at this time peer - Vital Signs Vital signs: Temp Pulse Resp BP Pulse Ox 98.1 F 104 H 18 111/76 95 11/19/17 11:13 11/19/17 11:13 11/19/17 11:13 11/19/17 11:13 11/19/17 11:13 Discharge - Discharge Clinical Impression: Contusion of scalp Qualifiers: Encounter type: initial encounter Qualified Code(s): S00.03XA - Contusion of scalp, initial encounter Condition: Good Disposition: HOME, SELF-CARE Instructions: Contusion ([facility])
--- NOTE | 2017-11-19 11:53 | RADIOLOGY REPORT (SQ) ---
EXAM DESCRIPTION: CT HEAD WITHOUT COMPLETED DATE/TIME: 11/19/2017 11:40 am REASON FOR STUDY: fall, contusion , dementia COMPARISON: 11/05/2017 TECHNIQUE: Axial images acquired through the brain without intravenous contrast. Images reviewed wi th bone, brain and subdural windows. Images stored on PACS. All CT scanners at this facility use dose modulation, iterative reconstruction, and/or weight based d osing when appropriate to reduce radiation dose to as low as reasonably achievable (ALARA). [facility]: Dose Right [facility]: CareDose [facility]: Dose Right [facility]: Teradose 4D [facility]: [employer] RADIATION DOSE: CT Rad equipment meets quality standard of care and radiation dose reduction techniq ues were employed. CTDIvol: 49.0 mGy. DLP: 1566 mGy-cm.mGy. LIMITATIONS: None. FINDINGS: VENTRICLES: Prominent. CEREBRUM: No masses. No hemorrhage. No midline shift. Areas of low density in the white matter mos t likely due to chronic micro-vascular ischemic change. No evidence for acute infarction. CEREBELLUM: No masses. No hemorrhage. No alteration of density. No evidence for acute infarction. EXTRAAXIAL SPACES: Age-related involutional change. No fluid collections. No masses. ORBITS AND GLOBE: No intra- or extraconal masses. Normal contour of globe without masses. CALVARIUM: No fracture. PARANASAL SINUSES: No fluid or mucosal thickening. SOFT TISSUES: Scalp hematoma is identified in the right posterior parietal region. OTHER: No other significant finding. IMPRESSION: CHRONIC CHANGES OF ATROPHY AND MICROVASCULAR ISCHEMIA. NO ACUTE intracranial process. Scalp hematoma in the right posterior parietal region. EVIDENCE OF ACUTE STROKE: NO. TECHNICAL DOCUMENTATION: JOB ID: [id number] Quality ID # [id number]: Final reports with documentation of one or more dose reduction techniques (e.g., Au tomated exposure control, adjustment of the mA and/or kV according to patient size, use of iterative reconstruction technique) 2010 [employer]- All Rights Reserved Reading location - IP/workstation name: [email or web address]
[2017-11-19 13:22] VITALS: BP 121/85
== END 2017-11-19 13:20 | disposition home or self-care (01) ==
LOC: ER 10:29
DX: S00.03XA Contusion of scalp, initial encounter (principal); R51 Headache; W05.0XXA Fall from non-moving wheelchair, initial encounter; Y92.129 Unspecified place in nursing home as the place of occurrence of the external cause; F03.90 Unspecified dementia, unspecified severity, without behavioral disturbance, psychotic disturbance, mood disturbance, and anxiety
CPT/HCPCS: 70450; 99284

== ENCOUNTER 2018-11-28 16:42 | Emergency (ER) | payer OTHER, MEDICARE, MEDICAID ==
--- NOTE | 2018-11-28 17:15 | ER Document Report ---
ED Fall - General Chief Complaint: Fall Stated Complaint: FALL Time Seen by Provider: 11/28/18 17:00 Mode of Arrival: Medic Information source: Emergency Med Personnel, Outside Facility Records Notes: Patient is a 68-year-old male who presents to the ER today with home for fall, staff at the group home states that they walked in and found him lying next to his bed, he has a cut to his right ear, patient is denying any pain anywhere, it is unknown if he lost consciousness. Patient is severely demented And unable to give me any further history. TRAVEL OUTSIDE OF THE [place] IN LAST 30 DAYS: No - Related data Allergies/Adverse Reactions: No Known Allergies Allergy (Verified 11/19/17 11:16) Past Medical History - General Information source: Emergency Med Personnel, Outside Facility Records - Social History Smoking Status: Unknown if Ever Smoked Chew tobacco use (# tins/day): No Frequency of alcohol use: None Drug Abuse: None Family History: Reviewed & Not Pertinent Patient has suicidal ideation: No Patient has homicidal ideation: No Renal/ Medical History: Denies: Hx Peritoneal Dialysis Psychiatric Medical History: Reports: Hx Dementia, Hx Depression Review of Systems - Review of Systems Constitutional: No symptoms reported EENT: See HPI Cardiovascular: No symptoms reported Respiratory: No symptoms reported Gastrointestinal: No symptoms reported Genitourinary: No symptoms reported Male Genitourinary: No symptoms reported Musculoskeletal: No symptoms reported Skin: No symptoms reported Hematologic/Lymphatic: No symptoms reported Neurological/Psychological: No symptoms reported Physical Exam - Vital signs Vitals: Temp Pulse Resp BP Pulse Ox 98.3 F 92 16 125/72 96 11/28/18 17:05 11/28/18 17:05 11/28/18 17:05 11/28/18 17:05 11/28/18 17:05 - Notes Notes: PHYSICAL EXAMINATION: GENERAL: demented, in no acute distress. HEAD: right ear lobe laceration, no bleeding, normocephalic. EYES: Pupils equal round and reactive to light, extraocular movements intact, sclera anicteric, conjunctiva are normal. NECK: Normal range of motion, supple without lymphadenopathy LUNGS: CTAB and equal. No wheezes rales or rhonchi. HEART: Regular rate and rhythm without murmurs ABDOMEN: Soft, no tenderness. No guarding, no rebound BACK: no vertebral tenderness, normal ROM GI/: no CVA tenderness EXTREMITIES: Normal range of motion, no pitting edema. No cyanosis. NEUROLOGICAL: Cranial nerves grossly intact. Normal sensory/motor exams. PSYCH: demented SKIN: Warm, Dry, normal turgor, see ENT above Course - Re-evaluation Re-evalutation: 11/28/18 19:31 CT of the head negative for any acute pathology, patient had no pain to back, hips, arms and was able to roll in the stretcher multiple times during this visit without complaining of any pain, earlobe laceration was repaired with Dermabond successfully. - Vital Signs Vital signs: Temp Pulse Resp BP Pulse Ox 98.3 F 92 16 125/72 96 11/28/18 17:05 11/28/18 17:05 11/28/18 17:05 11/28/18 17:05 11/28/18 17:05 Procedures - Laceration/Wound Repair Right Head Time completed: 18:31 Wound length (cm): 1 Wound's Depth, Shape: Flap Laceration pre-procedure: Sterile PPE donned, Pro applied Wound explored: Clean Irrigated w/ Saline (mLs): 30 Wound Repaired With: Dermabond Post-procedure NV exam normal: Yes Complications: No Discharge - Discharge Clinical Impression: Laceration of ear Qualifiers: Encounter type: initial encounter Laterality: right Qualified Code(s): S01.311A - Laceration without foreign body of right ear, initial encounter Condition: Stable Disposition: HOME, SELF-CARE Additional Instructions: Return immediately for any new or worsening symptoms. Follow up with primary care provider, call tomorrow to make followup appointment.
--- NOTE | 2018-11-28 18:41 | RADIOLOGY REPORT (SQ) ---
EXAM DESCRIPTION: CT HEAD WITHOUT COMPLETED DATE/TIME: 11/28/2018 5:45 pm REASON FOR STUDY: fall, ear lac COMPARISON: CT head 11/19/2017. TECHNIQUE: Axial images acquired through the brain without intravenous contrast. Images reviewed wi th bone, brain and subdural windows. Images stored on PACS. All CT scanners at this facility use dose modulation, iterative reconstruction, and/or weight based d osing when appropriate to reduce radiation dose to as low as reasonably achievable (ALARA). [facility]: Dose Right [facility]: CareDose [facility]: Dose Right [facility]: Teradose 4D [facility]: [employer] RADIATION DOSE: CT Rad equipment meets quality standard of care and radiation dose reduction techniq ues were employed. CTDIvol: 53.2 mGy. DLP: 1097 mGy-cm.mGy. LIMITATIONS: Extensive patient motion artifact. FINDINGS: VENTRICLES: Prominent. CEREBRUM: No mass effect. No obvious hemorrhage. No midline shift. Areas of low density in the whi te matter most likely due to chronic micro-vascular ischemic change. No evidence for acute territori al infarction. CEREBELLUM: No obvious hemorrhage. No alteration of density. No evidence for acute infarction. EXTRAAXIAL SPACES: Age-related involutional change. No obvious fluid collections. ORBITS AND GLOBE: Symmetrical contour of the globes. CALVARIUM: No obvious depressed fracture. PARANASAL SINUSES: No air-fluid level. SOFT TISSUES: No hematoma. IMPRESSION: 1. Study degraded by extensive motion artifact. No obvious acute intracranial hemorrh age or depressed calvarial fracture. If clinical concern persists, a repeat exam can be obtained whe n the patient will be able to cooperate with positioning. 2. Chronic changes of atrophy and microvascular ischemia. EVIDENCE OF ACUTE STROKE: NO. TECHNICAL DOCUMENTATION: JOB ID: [id number] [facility] Quality ID # [id number]: Final reports with documentation of one or more dose reduction techniques (e.g., Au tomated exposure control, adjustment of the mA and/or kV according to patient size, use of iterative reconstruction technique) 2010 [employer]- All Rights Reserved Reading location - IP/workstation name: [email or web address]
[2018-11-28 21:06] VITALS: BP 97/79
== END 2018-11-28 21:09 | disposition home or self-care (01) ==
LOC: ER 16:42
PROC: 0HQ0XZZ Repair Scalp Skin, External Approach (ICD-10-PCS; principal; 2018-11-28)
DX: S01.311A Laceration without foreign body of right ear, initial encounter (principal); W19.XXXA Unspecified fall, initial encounter; Y92.129 Unspecified place in nursing home as the place of occurrence of the external cause
CPT/HCPCS: 70450; 99284

== ENCOUNTER 2019-01-29 23:12 | Emergency (ER) | payer OTHER, MEDICARE, MEDICAID ==
--- NOTE | 2019-01-29 23:58 | RADIOLOGY REPORT (SQ) ---
CT CERVICAL SPINE WITHOUT IV CONTRAST HISTORY: Fall. Neck pain. COMPARISON: 10/11/2017 TECHNIQUE: CT scan of the cervical spine without IV contrast. This exam was performed according to our departmental dose-optimization program, which includes automated exposure control, adjustment of the mA and/or kV according to patient size and/or use of iterative reconstruction technique. FINDINGS: No acute cervical fracture or prevertebral soft tissue swelling is seen. Mild degenerative disc disease is present C5-C6. The facet joints are intact. Cervical alignment is maintained. No advanced canal stenosis is identified. 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 IMPRESSION: No acute fracture or subluxation of the cervical spine.
--- NOTE | 2019-01-29 23:58 | RADIOLOGY REPORT (SQ) ---
EXAM DESCRIPTION: CT HEAD WITHOUT IV CONTRAST COMPLETED DATE/TME: 01/29/2019 23:17 CLINICAL HISTORY: 68 years, Male, fall, head trauma COMPARISON: Prior study from 11/28/2018 TECHNIQUE: Noncontrast CT of the head was performed. Coronal and sagittal reformations were created. Images stored on PACS. All CT scanners at this facility use dose modulation, iterative reconstruction, and/or weight based dosing when appropriate to reduce radiation dose to as low as reasonably achievable (ALARA). [facility]: Dose Right [facility]: CareDose [facility]: Dose Right [facility]: Teradose 4D [facility]: IWT LIMITATIONS: None. FINDINGS: Evaluation of the brain parenchyma reveals mild periventricular and patchy subcortical white matter low attenuation. No acute intracranial hemorrhage, mass effect, or extra-axial fluid is seen. The ventricles and sulcal spaces are moderately enlarged. 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 Globes and orbits show no acute abnormality. Paranasal sinuses and mastoid air cells are clear. 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 The anterior tubercle of the left transverse process of C1 is also incomplete, congenital. There are no depressed skull fractures. IMPRESSION: No acute intracranial abnormality. Mild chronic microvascular ischemic change and generalized atrophy. TECHNICAL DOCUMENTATION: Quality ID # [id number]: Final reports with documentation of one or more dose reduction techniques (e.g., Automated exposure control, adjustment of the mA and/or kV according to patient size, use of iterative reconstruction technique) copyright 2011 [employer]- All Rights Reserved
--- NOTE | 2019-01-30 00:10 | ER Document Report ---
ED General - General Chief Complaint: Fall Stated Complaint: FALL Time Seen by Provider: 01/29/19 23:17 Cannot obtain history due to: Dementia Notes: Patient is a 68-year-old male with a past medical history of dementia currently resides in [facility] who presents after a fall. Patient normally uses a wheelchair, apparently try to get up independently and fell backwards hitting the back of his head. No loss of consciousness or vomiting since that time. Patient is profoundly confused at baseline and apparently he is at his baseline mental status per EMS. Patient himself is a very poor historian, not able to provide any meaningful history. Denies any pain and denies any complaints in any location. TRAVEL OUTSIDE OF THE [place] IN LAST 30 DAYS: No - Related Data Allergies/Adverse Reactions: No Known Allergies Allergy (Verified 01/29/19 23:24) Past Medical History - General Information source: Emergency Med Personnel Cannot obtain history due to: Dementia - Social History Smoking Status: Never Smoker Frequency of alcohol use: None Drug Abuse: None Lives with: Retirement Family History: Reviewed & Not Pertinent Patient has suicidal ideation: No Patient has homicidal ideation: No Renal/ Medical History: Denies: Hx Peritoneal Dialysis Psychiatric Medical History: Reports: Hx Dementia, Hx Depression Review of Systems - Review of Systems Notes: Constitutional: Negative for fever. Eyes: Negative for visual changes. ENT: Negative for facial injury Cardiovascular: Negative for chest injury. Respiratory: Negative for shortness of breath. Gastrointestinal: Negative for abdominal injury. Genitourinary: Negative for genital injury Musculoskeletal: Negative for back injury. Skin: Negative for laceration/abrasions. Neurological: Positive for head injury. Physical Exam - Vital signs Vitals: Temp Pulse Resp BP Pulse Ox 98.2 F 94 22 H 140/92 H 100 01/29/19 23:13 01/29/19 23:13 01/29/19 23:13 01/29/19 23:13 01/29/19 23:13 Interpretation: Normal Notes: PHYSICAL EXAMINATION: GENERAL: Well-appearing, no acute distress. HEAD: Atraumatic, normocephalic. EYES: Pupils equal round and reactive to light, extraocular movements intact, sclera anicteric, conjunctiva are normal. ENT: nares patent, no oral pharyngeal trauma. No hemotympanum, no Nicole's sign, no raccoon eyes. NECK: No midline cervical spine tenderness. Patient able to move their head to 45 bilaterally without any discomfort. LUNGS: Breath sounds clear to auscultation bilaterally and equal. No wheezes rales or rhonchi. HEART: Regular rate and rhythm without murmurs. CHEST WALL: No ecchymosis over the chest wall. ABDOMEN: Soft, nontender, normoactive bowel sounds. No guarding, no rebound. No abdominal bruising EXTREMITIES: Normal range of motion, no pitting or edema. No long bone deformities. BACK: No midline spinal tenderness, step-offs, or deformities. NEUROLOGICAL: Face symmetric. Tongue protrudes midline. Extraocular motions intact. Pupils are 2 mm and equally reactive. Normal speech, normal gait. 5 out of 5 strength in both the distal and proximal upper and lower extremities bilaterally. Sensation is grossly intact throughout. PSYCH: Oriented to person only SKIN: Warm, Dry, normal turgor, no rashes or lesions noted. Course - Re-evaluation Re-evalutation: 01/30/19 00:41 Presentation of a well appearing elderly patient in no acute distress, vitals within normal limits after a mechanical fall. Patient denies a syncopal episode as the cause for today's fall. No focal neurologic deficits on exam, no evidence of basilar skull fracture on exam without evidence of hemotympanum, raccoon eyes, or periauricular hematoma. No papilledema. Patient is not on anticoagulation. At his baseline mental status. No loss of consciousness. No episodes of vomiting. However, based on patient's age a CT of the head has been obtained which is negative for any acute intracranial bleed. Likewise, patient was unable to be clinically cleared due to age by [place] cervical spine criteria. A CT of the cervical spine was also obtained and likewise is negative for any acute fracture. No indication for further imaging of the cervical spine. Patient has no focal deformities or limited range of motion in any joint space. Chest and abdominal exam are benign without any focal tenderness, shortness of breath, or bruising over the chest or abdominal wall. Patient has no flank tenderness. There is no obvious findings on trauma exam today and therefore no further imaging or evaluation will be obtained at this time. At this time will discharge with return precautions and follow-up recommendations. - Vital Signs Vital signs: Temp Pulse Resp BP Pulse Ox 98.2 F 94 22 H 140/92 H 100 05/11/19 23:13 01/29/19 23:13 01/29/19 23:13 01/29/19 23:13 01/29/19 23:13 - Diagnostic Test Radiology reviewed: Image reviewed, Reports reviewed Radiology results interpreted by me: 01/30/19 00:40 CT head: No acute intracranial bleed or mass Discharge - Discharge Clinical Impression: Dementia Qualifiers: Dementia type: unspecified type Dementia behavioral disturbance: without behavioral disturbance Qualified Code(s): F03.90 - Unspecified dementia without behavioral disturbance Fall Qualifiers: Encounter type: initial encounter Qualified Code(s): W19.XXXA - Unspecified fall, initial encounter Head trauma Qualifiers: Encounter type: initial encounter Qualified Code(s): S09.90XA - Unspecified injury of head, initial encounter Condition: Good Disposition: HOME, SELF-CARE Additional Instructions: You have been seen in the Emergency Department (ED) today following a fall. Your workup today did not reveal any injuries that require you to stay in the hospital. You can expect, though, to be stiff and sore for the next several days. You can take Tylenol 1000 mg every 6 hours as needed for pain. You can apply a hot pack or electric heating pad to the sore areas. You can also use topical "Aspercreme with lidocaine" to sore areas as needed. Please follow up with your primary care doctor as soon as possible regarding today's ED visit and your recent fall. Call your doctor or return to the ED if you develop a sudden or severe headache, confusion, slurred speech, facial droop, weakness or numbness in any arm or leg, extreme fatigue, vomiting more than two times, severe abdominal pain, or other symptoms that concern you.
[2019-01-30 03:43] VITALS: BP 106/68
== END 2019-01-30 03:51 | disposition home or self-care (01) ==
LOC: ER 23:12
DX: S09.90XA Unspecified injury of head, initial encounter (principal); F03.90 Unspecified dementia, unspecified severity, without behavioral disturbance, psychotic disturbance, mood disturbance, and anxiety; W19.XXXA Unspecified fall, initial encounter
CPT/HCPCS: 70450; 72125; 99283

== ENCOUNTER 2019-04-13 12:43 | Emergency (ER) | payer MEDICARE, MEDICAID ==
--- NOTE | 2019-04-13 13:57 | RADIOLOGY REPORT (SQ) ---
EXAM DESCRIPTION: CT CERVICAL SPINE WITHOUT COMPLETED DATE/TIME: 04/13/2019 1:44 pm REASON FOR STUDY: fell and hit his head; pain COMPARISON: 01/29/2019 TECHNIQUE: Axial images acquired through the cervical spine without intravenous contrast. Images re viewed with lung, soft tissue and bone windows. Reconstructed coronal and sagittal MPR images review ed. Images stored on PACS. All CT scanners at this facility use dose modulation, iterative reconstruction, and/or weight based d osing when appropriate to reduce radiation dose to as low as reasonably achievable (ALARA). [facility]: Dose Right [facility]: CareDose [facility]: Dose Right [facility]: Teradose 4D [facility]: [employer] RADIATION DOSE: CT Rad equipment meets quality standard of care and radiation dose reduction techniq ues were employed. CTDIvol: 20.3 mGy. DLP: 372 mGy-cm. mGy. LIMITATIONS: None. FINDINGS: ALIGNMENT: Anatomic. MINERALIZATION: Normal. VERTEBRAL BODIES: No fractures or dislocation. Incidental note of variant posterior nonfusion of C1 tear DISCS: No significant disc disease. FACETS, LATERAL MASSES, POSTERIOR ELEMENTS: No fractures. No dislocation. No acute findings. HARDWARE: None in the spine. VISUALIZED RIBS: No fractures. LUNG APICES AND SOFT TISSUES: No significant or acute findings. OTHER: No other significant finding. IMPRESSION: No fracture or static subluxation of the cervical spine. TECHNICAL DOCUMENTATION: JOB ID: [id number] Quality ID # [id number]: Final reports with documentation of one or more dose reduction techniques (e.g., Au tomated exposure control, adjustment of the mA and/or kV according to patient size, use of iterative reconstruction technique) 2010 [employer]- All Rights Reserved Reading location - IP/workstation name: [email or web address]
--- NOTE | 2019-04-13 13:57 | RADIOLOGY REPORT (SQ) ---
EXAM DESCRIPTION: CT HEAD WITHOUT COMPLETED DATE/TIME: 04/13/2019 1:44 pm REASON FOR STUDY: fell and hit his head; pain COMPARISON: 01/29/2019, 10/11/2017 TECHNIQUE: Axial images acquired through the brain without intravenous contrast. Images reviewed wi th bone, brain and subdural windows. Additional sagittal and coronal reconstructions were generated. Images stored on PACS. All CT scanners at this facility use dose modulation, iterative reconstruction, and/or weight based d osing when appropriate to reduce radiation dose to as low as reasonably achievable (ALARA). [facility]: Dose Right [facility]: CareDose [facility]: Dose Right [facility]: Teradose 4D [facility]: [employer] RADIATION DOSE: CT Rad equipment meets quality standard of care and radiation dose reduction techniq ues were employed. CTDIvol: 53.2 mGy. DLP: 1017 mGy-cm. mGy. LIMITATIONS: None FINDINGS: VENTRICLES: Prominent. CEREBRUM: No masses. No hemorrhage. No midline shift. Areas of low density in the white matter mos t likely due to chronic micro-vascular ischemic change. No evidence for acute infarction. CEREBELLUM: No masses. No hemorrhage. No alteration of density. No evidence for acute infarction. EXTRAAXIAL SPACES: Mild age-related involutional change. No fluid collections. No masses. Unchange d a calvin cisterna magna. ORBITS AND GLOBE: No intra- or extraconal masses. Normal contour of globe without masses. CALVARIUM: No fracture. Stable lucent within the left parietal calvarium measuring 8 mm. PARANASAL SINUSES: No fluid or mucosal thickening. SOFT TISSUES: No mass or hematoma. OTHER: No other significant finding. IMPRESSION: MILD CHRONIC CHANGES OF ATROPHY AND MICROVASCULAR ISCHEMIA. NO ACUTE PROCESS. EVIDENCE OF ACUTE STROKE: NO. TECHNICAL DOCUMENTATION: JOB ID: [id number] Quality ID # [id number]: Final reports with documentation of one or more dose reduction techniques (e.g., Au tomated exposure control, adjustment of the mA and/or kV according to patient size, use of iterative reconstruction technique) 2010 [employer]- All Rights Reserved Reading location - IP/workstation name: [email or web address]
[2019-04-13 15:13] VITALS: BP 137/89
--- NOTE | 2019-04-15 10:12 | ER Document Report ---
Entered by JONI FABIAN SCRIBE 04/13/19 1421 Acting as scribe for:TOÑA LAMBERT MD ED Fall - General Chief Complaint: Fall Stated Complaint: FALL/HEAD PAIN Time Seen by Provider: 04/13/19 13:11 Mode of Arrival: Medic Information source: Patient Notes: Pleasantly demented 68-year-old male who presents to the emergency department today after a fall that occurred at his care home. History is extremely limited as the patient is unable to answer any questions other than simple yes or no questions. Patient does say he is not in any pain. Patient states he does not remember how he fell. TRAVEL OUTSIDE OF THE [place] IN LAST 30 DAYS: Yes - Related data Allergies/Adverse Reactions: No Known Allergies Allergy (Verified 01/29/19 23:24) Past Medical History - General Information source: Outside Facility Records Cannot obtain history due to: Dementia - Social History Smoking Status: Unknown if Ever Smoked Family History: Reviewed & Not Pertinent Psychiatric Medical History: Reports: Hx Dementia, Hx Depression Review of Systems - Review of Systems -: Yes ROS unobtainable due to patient's medical condition - dementia Physical Exam - Vital signs Vitals: Resp Pulse Ox 33 H 94 04/13/19 12:57 04/13/19 12:57 - Notes Notes: Physical Exam: General: Alert, pleasant. Does not appear to be in any pain. HEENT: Normocephalic. Atraumatic. PERRL. Extraocular movements intact. Oropharynx clear. Neck: Supple. Non-tender. Rotation of the head neck does not elicit any pain. Respiratory: No respiratory distress. Clear and equal breath sounds bilaterally. Cardiovascular: Regular rate and rhythm. Abdominal: Normal Inspection. Non-tender. No distension. Normal Bowel Sounds. Back: Non-tender. No deformity or step off. Extremities: Moves all four extremities. Upper extremities: Normal inspection. Normal ROM. Lower extremities: Normal inspection. No edema. Normal ROM. Neurological: Pleasantly demented at baseline. Alert to person. Able to answer simple questions. Psychological: Normal affect. Normal Mood. Skin: Warm. Dry. Normal color. Course - Vital Signs Vital signs: Temp Pulse Resp BP Pulse Ox 23 H 120/88 H 93 04/13/19 13:01 04/13/19 13:01 04/13/19 13:01 - Diagnostic Test Radiology reviewed: Image reviewed, Reports reviewed - CT scans of the head and neck ordered from triage are unremarkable. Discharge - Discharge Clinical Impression: Fall Qualifiers: Encounter type: initial encounter Qualified Code(s): W19.XXXA - Unspecified fall, initial encounter Dementia Qualifiers: Dementia type: unspecified type Dementia behavioral disturbance: without behavioral disturbance Qualified Code(s): F03.90 - Unspecified dementia without behavioral disturbance Condition: Stable Disposition: HOME, SELF-CARE Additional Instructions: Your evaluation in the emergency room today after sustaining a fall at the care home, did not show any injury. Be sure to take fall precautions. Follow-up with your primary care provider as needed. RETURN TO THE EMERGENCY ROOM IF ANY NEW OR WORSENING SYMPTOMS. Scribe Attestation: 04/13/19 14:20 I personally performed the services described in the documentation, reviewed and edited the documentation which was dictated to the scribe in my presence, and it accurately records my words and actions. I personally performed the services described in the documentation, reviewed and edited the documentation which was dictated to the scribe in my presence, and it accurately records my words and actions.
== END 2019-04-13 15:16 | disposition home or self-care (01) ==
LOC: ER 12:43
DX: Z04.3 Encounter for examination and observation following other accident (principal); F03.90 Unspecified dementia, unspecified severity, without behavioral disturbance, psychotic disturbance, mood disturbance, and anxiety
CPT/HCPCS: 70450; 72125; 99284

== ENCOUNTER 2019-12-27 15:09 | Emergency (ER) | payer MEDICARE, MEDICAID ==
[2019-12-27] MEDS ORDERED: DIPH/PERTUSS(ACELL)/TETANUS VAC/PF 0.5 ML SYR (>=10YO) IM ONE (16:49)
--- NOTE | 2019-12-27 16:57 | ER Document Report ---
ED General - General Chief Complaint: Fall Stated Complaint: FALL Primary Care Provider: SID LU PA [Primary Care Provider] - Follow up as needed Notes: Patient is a 69-year-old white male with a history of dementia who comes from an assisted living facility with a reported fall. The facility states that he rolled out of bed striking the right side of his scalp on the corner of a nightstand/dresser. Supposedly the fall resulted in no loss of consciousness. Initially the patient's been acting appropriately otherwise. Patient has a baseline of dementia and is unable to provide history. Unsure of his last tetanus, will update. He denies any pain or fall. TRAVEL OUTSIDE OF THE [place] IN LAST 30 DAYS: Yes - Related Data Allergies/Adverse Reactions: No Known Allergies Allergy (Verified 01/29/19 23:24) Past Medical History - Social History Smoking Status: Never Smoker Family History: Reviewed & Not Pertinent Patient has suicidal ideation: No Patient has homicidal ideation: No Renal/ Medical History: Denies: Hx Peritoneal Dialysis Psychiatric Medical History: Reports: Hx Bipolar Disorder, Hx Dementia, Hx Depression Review of Systems - Review of Systems -: Yes ROS unobtainable due to patient's medical condition - Baseline dementia Physical Exam - Vital signs Vitals: Temp Pulse Resp BP Pulse Ox 98.5 F 99 16 101/67 98 12/27/19 15:20 12/27/19 15:20 12/27/19 15:20 12/27/19 15:20 12/27/19 15:20 - General General appearance: Appears well, Alert In distress: None - HEENT Head: Other - 2.5 cm linear laceration to the right parietal anterior scalp, wound edges well approximated. No foreign body visualized. Hemostasis maintained. No galeal involvement.. No: [place]'s eyes Eyes: Normal Conjunctiva: Normal Extraocular movements intact: Yes Pupils: PERRL Tympanic membrane: No: Hemotympanum Neck: Supple Notes: No vlale signs - Respiratory Respiratory status: No respiratory distress Chest status: Nontender Breath sounds: Normal Chest palpation: Normal - Cardiovascular Rhythm: Regular Heart sounds: Normal auscultation - Extremities General upper extremity: Normal inspection, Nontender General lower extremity: Normal inspection, Nontender - Neurological Neuro grossly intact: Yes Cognition: Normal, Other - Oriented to person and place - Psychological Associated symptoms: Normal affect, Normal mood - Skin Skin Color: Other - Normal except laceration as described above on visualized skin Course - Re-evaluation Re-evalutation: 12/27/19 18:12 Given patient's history of dementia he could not sit still for the CT scan so it was a limited evaluation however the radiologist commented that appears to be no acute intracranial abnormality. They questioned a possible left inferior orbital fracture versus artifact. The patient's laceration and site of impact is actually on the opposite side of the face and head. He has no tenderness or swelling over the left inferior orbital rim, suspect artifact over fracture. Patient tolerated wound repair well. He will be sent back to his assisted living facility where they will monitor the wound. Staple removal in approximately 7 to 10 days. I advised they return the patient here or any ER immediately with any new, persistent or worsening symptoms. 12/27/19 18:14 Tetanus updated today. - Vital Signs Vital signs: Temp Pulse Resp BP Pulse Ox 98.5 F 99 17 108/84 91 L 12/27/19 16:00 12/27/19 15:20 12/27/19 16:30 12/27/19 16:30 12/27/19 16:30 Procedures - Laceration/Wound Repair Right Head Time completed: 18:11 Wound length (cm): 2.5 Wound's Depth, Shape: Superficial Laceration pre-procedure: Sterile PPE donned, Betadine prep applied, Sterile drapes applied Wound explored: Clean Irrigated w/ Saline (mLs): 200 Wound Repaired With: [place] Number of Sutures: 3 Layer Closure?: No Post-procedure NV exam normal: Yes Complications: No Discharge - Discharge Clinical Impression: Fall Qualifiers: Encounter type: initial encounter Qualified Code(s): W19.XXXA - Unspecified fall, initial encounter Scalp laceration Qualifiers: Encounter type: initial encounter Qualified Code(s): S01.01XA - Laceration with out foreign body of scalp, initial encounter Condition: Stable Disposition: HOME, SELF-CARE Instructions: Laceration Care ([facility]) Additional Instructions: Follow-up with your regular doctor in 2 to 3 days for reevaluation. Return here or any ER immediately with any new, persistent or worsening symptoms. Staple removal in approximately 7 to 10 days. Referrals: SID LU PA [Primary Care Provider] - Follow up as needed
[2019-12-27 16:58] VITALS: BP 108/84
--- NOTE | 2019-12-27 17:45 | RADIOLOGY REPORT (SQ) ---
EXAM DESCRIPTION: CT HEAD WITHOUT IMAGES COMPLETED DATE/TIME: 12/27/2019 5:24 pm REASON FOR STUDY: head injury COMPARISON: 04/13/2019 TECHNIQUE: Axial images acquired through the brain without intravenous contrast. Images reviewed wi th bone, brain and subdural windows. Additional sagittal and coronal reconstructions were generated. Images stored on PACS. All CT scanners at this facility use dose modulation, iterative reconstruction, and/or weight based d osing when appropriate to reduce radiation dose to as low as reasonably achievable (ALARA). [facility]: Dose Right [facility]: CareDose [facility]: Dose Right [facility]: Teradose 4D [facility]: Smart [employer] RADIATION DOSE: CT Rad equipment meets quality standard of care and radiation dose reduction techniq ues were employed. CTDIvol: 49.9 mGy. DLP: 879 mGy-cm. LIMITATIONS: Motion artifact limits examination somewhat. FINDINGS: VENTRICLES: Prominent, unchanged, commensurate with the sulci. The cisterns are patent. CEREBRUM: Chronic small vessel ischemic changes, stable findings. No masses. No hemorrhage. No m idline shift. No evidence for acute infarction. EREBELLUM: No masses. No hemorrhage. No alteration of density. No evidence for acute infarction. Prominent cisterna magna, normal anatomic variant. EXTRAAXIAL SPACES: Age related involutional change. No fluid collections. No masses. ORBITS AND GLOBE: No intra- or extraconal masses. Normal contour of globe without masses. CALVARIUM: No fracture. PARANASAL SINUSES: No fluid or mucosal thickening. SOFT TISSUES: No mass or hematoma. OTHER: Incidentally, partial empty sella. IMPRESSION: 1. Motion artifact limits the examination somewhat. No acute intracranial abnormality. 2. Chronic mild small vessel ischemic change and atrophy. 3. Question of artifact versus fracture involving the inferior orbital ring M on the left. For the evaluation with CT facial bones suggested. EVIDENCE OF ACUTE STROKE: NO COMMENT: Quality ID # [id number]: Final reports with documentation of one or more dose reduction techniques (e.g., Automated exposure control, adjustment of the mA and/or kV according to patient size, use of iterative reconstruction technique) TECHNICAL DOCUMENTATION: JOB ID: [id number] 2010 [employer]- All Rights Reserved Reading location - IP/workstation name: [email or web address]
--- NOTE | 2019-12-27 17:52 | RADIOLOGY REPORT (SQ) ---
EXAM DESCRIPTION: CT CERVICAL SPINE WITHOUT IMAGES COMPLETED DATE/TIME: 12/27/2019 5:24 pm REASON FOR STUDY: head injury COMPARISON: 04/13/2019 TECHNIQUE: Axial images acquired through the cervical spine without intravenous contrast. Images re viewed with lung, soft tissue and bone windows. Reconstructed coronal and sagittal MPR images review ed. Images stored on PACS. All CT scanners at this facility use dose modulation, iterative reconstruction, and/or weight based d osing when appropriate to reduce radiation dose to as low as reasonably achievable (ALARA). [facility]: Dose Right [facility]: CareDose [facility]: Dose Right [facility]: Teradose 4D [facility]: Smart [employer] RADIATION DOSE: CT Rad equipment meets quality standard of care and radiation dose reduction techniq ues were employed. CTDIvol: 22.9 mGy. DLP: 512 mGy-cm. LIMITATIONS: None. FINDINGS: ALIGNMENT: Anatomic. MINERALIZATION: Normal. VERTEBRAL BODIES: No fractures or dislocation. DISCS: No significant disc disease. FACETS, LATERAL MASSES, POSTERIOR ELEMENTS: No fractures. No dislocation. No acute findings. HARDWARE: None in the spine. VISUALIZED RIBS: No fractures. LUNG APICES AND SOFT TISSUES: No significant or acute findings. Azygos lobe in the right upper lobe, normal anatomic variant. OTHER: No other significant finding. IMPRESSION: 1. No significant interval changes since the prior study dated 04/13/2019. No acute oss eous findings. TECHNICAL DOCUMENTATION: JOB ID: [id number] Quality ID # [id number]: Final reports with documentation of one or more dose reduction techniques (e.g., Au tomated exposure control, adjustment of the mA and/or kV according to patient size, use of iterative reconstruction technique) 2010 [employer]- All Rights Reserved Reading location - IP/workstation name: [email or web address]
== END 2019-12-27 18:30 | disposition home or self-care (01) ==
LOC: ER 15:09
DX: S01.01XA Laceration without foreign body of scalp, initial encounter (principal); W06.XXXA Fall from bed, initial encounter; W22.03XA Walked into furniture, initial encounter; Y92.193 Bedroom in other specified residential institution as the place of occurrence of the external cause; F03.90 Unspecified dementia, unspecified severity, without behavioral disturbance, psychotic disturbance, mood disturbance, and anxiety; Z23 Encounter for immunization
CPT/HCPCS: 70450; 72125; 90471; 90715; 99283

== ENCOUNTER 2020-09-17 20:02 | Inpatient (IN) | payer MEDICARE, MEDICAID ==
[2020-09-17] MEDS ORDERED: NORMAL SALINE 500 ML IV ONE (20:57)
--- NOTE | 2020-09-17 21:02 | ER Document Report ---
ED General - General Stated Complaint: NOT EATING Time Seen by Provider: 09/17/20 20:39 Primary Care Provider: SID LU PA [Primary Care Provider] - Follow up as needed Information source: Transfer Record Cannot obtain history due to: Dementia Notes: Patient presents to the ER for evaluation of altered mental status that reportedly began this morning. The patient lives at the [facility]. According to the staff there, he has had nothing to eat today. He has been more lethargic than normal. There is no history of fever. There is no history of nausea or vomiting. There is no history of diarrhea. There is no history of abdominal pain. There is no history of headache. There is no history of cough or congestion. There is no history of unilateral weakness or numbness. Nursing notes reviewed and past medical, social, and family histories reviewed and validated. TRAVEL OUTSIDE OF THE [place] IN LAST 30 DAYS: Yes - Related Data Allergies/Adverse Reactions: No Known Allergies Allergy (Verified 01/29/19 23:24) Past Medical History - General Information source: Emergency Med Personnel Cannot obtain history due to: Dementia - Social History Smoking Status: Unknown if Ever Smoked Frequency of alcohol use: None Drug Abuse: None Lives with: [facility] Family History: Reviewed & Not Pertinent Patient has suicidal ideation: No Patient has homicidal ideation: No - Past Medical History Cardiac Medical History: Reports: Hx Hypertension Pulmonary Medical History: Reports: None EENT Medical History: Reports: None Neurological Medical History: Reports: None Endocrine Medical History: Reports: None Renal/ Medical History: Reports: None. Denies: Hx Peritoneal Dialysis Malignancy Medical History: Reports None GI Medical History: Reports: None Musculoskeletal Medical History: Reports None Skin Medical History: Reports None Psychiatric Medical History: Reports: Hx Anxiety, Hx Bipolar Disorder, Hx Dementia, Hx Depression Traumatic Medical History: Reports: None Infectious Medical History: Reports: None Past Surgical History: Reports: None - Immunizations Immunizations up to date: Yes Hx Diphtheria, Pertussis, Tetanus Vaccination: Yes Review of Systems - Review of Systems Notes: Constitutional: Negative for fever. HENT: Negative for sore throat. Eyes: Negative for visual changes. Cardiovascular: Negative for chest pain. Respiratory: Negative for shortness of breath. Gastrointestinal: Negative for abdominal pain, vomiting or diarrhea. Genitourinary: Negative for dysuria. Musculoskeletal: Negative for back pain. Skin: Negative for rash. Neurological: Negative for headaches or numbness. 10 point ROS negative except as marked above and in HPI. Physical Exam - Vital signs Vitals: Pulse Resp BP Pulse Ox 79 18 105/70 97 09/17/20 20:20 09/17/20 20:20 09/17/20 20:20 09/17/20 20:20 - Notes Notes: CONSTITUTIONAL: Patient is elderly and frail appearing. He appears to be older than stated age. SKIN: Warm, dry, and intact without rash EYES: Extraocular movements are grossly intact, clear conjunctiva HENT: Normocephalic, atraumatic, dry mucus membranes NECK: No obvious swelling, normal range of motion PULMONARY: Normal chest rise and fall. Breath sounds clear and equal b ilaterally. No respiratory distress or stridor CARDIOVASCULAR: Regular rate. No murmurs, rubs, gallops. Distal extremities are warm and well perfused. ABDOMINAL: Soft, nontender NEUROLOGIC: Patient is drowsy. Cranial nerves are within normal limits. Regional Sales Leader strength generally weak and equal in the upper extremities bilaterally. MUSCULOSKELETAL: No gross deformities, atraumatic PSYCHIATRIC: Depressed affect. Course - Vital Signs Vital signs: Temp Pulse Resp BP Pulse Ox 79 18 103/84 97 09/17/20 20:20 09/18/20 00:02 09/18/20 00:02 09/18/20 00:02 - Laboratory Results Result Diagrams: 09/17/20 21:35 09/17/20 23:52 Laboratory Results Interpreted: 09/17/20 09/17/20 09/17/20 21:35 22:30 23:52 WBC 12.3 H RBC 4.30 L Plt Count 452 H Absolute Neuts (auto) 9.0 H Sodium 145.2 H BUN 27 H Glucose 111 H AST 60 H ALT 123 H Alkaline Phosphatase 165 H Urine Protein 30 H Critical Laboratory Results Reviewed: No Critical Results - Radiology Results Critical Radiology Results Reviewed: No Critical Results - EKG Interpretation by [place] EKG shows normal: Sinus rhythm Rate: Normal Rhythm: NSR - Consults Hospitalist Consult Time consulted: 00:34 Reason for consultation: 09/18/20 00:34 This case was discussed with Dr. Enamorado who agrees to evaluate patient in the emergency room for admission. Discharge - Discharge Clinical Impression: Altered mental status Qualifiers: Altered mental status type: unspecified Qualified Code(s): R41.82 - Altered mental status, unspecified Condition: Stable Disposition: ADMITTED OBSERVATION Admitting Provider: Kelsea (Hospitalist) Unit Admitted: Medical Floor
[2020-09-17 22:23] LABS: ABSOLUTE EOSINOPHILS # (AUTO) 0.3 10^3/uL (0.0-0.6); ABSOLUTE LYMPHOCYTES (AUTO) 1.9 10^3/uL (0.5-4.7); LYMPHOCYTES % (AUTO) 15.8 % (13-45); MEAN CORPUSCULAR HEMOGLOBIN 32.2 pg (27.0-33.4); MEAN CORPUSCULAR HGB CONC 34.1 g/dL (32.0-36.0); MEAN CORPUSCULAR VOLUME 94 fl (80-97); TOTAL CELLS COUNTED % (AUTO) 100 %
[2020-09-17 22:28] LABS: ABSOLUTE BASOPHILS # (AUTO) 0.1 10^3/uL (0.0-0.2); BASOPHILS % (AUTO) 0.5 % (0-2); EOSINOPHILS % (AUTO) 2.1 % (0-6); HEMATOCRIT 40.6 % (37.9-51.0); HEMOGLOBIN 13.9 g/dL (13.5-17.0); MONOCYTES % (AUTO) 8.1 % (3-13); PLATELET COUNT 452 10^3/uL (150-450); RED CELL DISTRIBUTION WIDTH 13.9 % (11.5-14.0); SEGMENTED NEUTROPHILS % (AUTO) 73.5 % (42-78); WHITE BLOOD COUNT 12.3 10^3/uL (4.0-10.5)
--- NOTE | 2020-09-17 22:36 | RADIOLOGY REPORT (SQ) ---
CHEST X-RAY 1 VIEW on 09/17/2020 at 9:48 PM CLINICAL INDICATION: Altered mental status COMPARISON: 10/12/2017 FINDINGS: There is elevation of the right hemidiaphragm. There is minimal bibasilar atelectasis and/or scarring. Incidental azygos lobe variant is noted. The lungs are otherwise clear. Cardiac, hilar and mediastinal contours are within normal limits. Pulmonary vascularity is within normal limits. IMPRESSION: No acute disease.
--- NOTE | 2020-09-17 22:38 | RADIOLOGY REPORT (SQ) ---
CT head without contrast on 09/17/2020 at 10:00 PM CLINICAL INDICATION: Altered mental status TECHNIQUE: Multiple axial images are obtained throughout the head without the administration of contrast. This exam was performed according to our departmental dose-optimization program, which includes automated exposure control, adjustment of the mA and/or kV according to patient size and/or use of iterative reconstruction technique. Total DLP is 1083.99 mGy*cm. COMPARISON: 12/27/2019 FINDINGS: There is generalized cerebral atrophy. There is low density in the periventricular white matter consistent with chronic small vessel ischemic changes. There is no hydrocephalus. There is no hemorrhage. There are no abnormal extra-axial fluid collections. There is no mass, mass effect or midline shift. There is no CT evidence of acute infarct. No bony abnormality is noted. IMPRESSION: Atrophy and chronic small vessel ischemic changes with no acute intracranial abnormality.
[2020-09-17 22:57] LABS: APPEARANCE,URINE SLIGHTLY-CLOUDY; BILIRUBIN,URINE NEGATIVE (NEGATIVE); COLOR,URINE YELLOW; GLUCOSE, URINE NEGATIVE (NEGATIVE); KETONES,URINE NEGATIVE (NEGATIVE); LEUKOCYTE ESTERASE,URINE NEGATIVE (NEGATIVE); NITRITE,URINE NEGATIVE (NEGATIVE); PROTEIN,URINE 30 mg/dL (NEGATIVE); URINE SPECIFIC GRAVITY 1.024; UROBILINOGEN,URINE NEGATIVE mg/dL (<2.0)
[2020-09-17 23:08] LABS: URINE AMPHETAMINES SCREEN NEGATIVE; URINE BARBITURATES SCREEN NEGATIVE; URINE BENZODIAZEPINES SCREEN NEGATIVE; URINE COCAINE SCREEN NEGATIVE; URINE MARIJUANA (THC) SCREEN NEGATIVE; URINE METHADONE SCREEN NEGATIVE; URINE PHENCYCLIDINE SCREEN NEGATIVE
[2020-09-18 00:20] LABS: ALBUMIN 3.7 g/dL (3.5-5.0); ALKALINE PHOSPHATASE 165 U/L (38-126); ANION GAP 9 (5-19); ASPARTATE AMINO TRANSFERASE 60 U/L (17-59); BILIRUBIN,DIRECT 0.2 mg/dL (0.0-0.4); BILIRUBIN,TOTAL 0.4 mg/dL (0.2-1.3); BLOOD UREA NITROGEN 27 mg/dL (7-20); CALCIUM 9.3 mg/dL (8.4-10.2); CARBON DIOXIDE 29 mmol/L (22-30); CHLORIDE 107 mmol/L (98-107); GLUCOSE 111 mg/dL (75-110); POTASSIUM 4.1 mmol/L (3.6-5.0); TOTAL PROTEIN 8.2 g/dL (6.3-8.2)
[2020-09-18] MEDS ORDERED: ONDANSETRON HCL INJ/PF 4 MG/2 ML SDV IV PRN (01:47)
[2020-09-18] MEDS ORDERED: TEMAZEPAM 7.5 MG CAPSULE PO PRN (01:47)
[2020-09-18] MEDS ORDERED: ACETAMINOPHEN 325 MG TABLET PO PRN (01:47)
[2020-09-18] MEDS ORDERED: MAG HYDROX/AL HYDROX/SIMETH SUSP 30 ML UDCUP PO PRN (01:47)
[2020-09-18] MEDS ORDERED: PROMETHAZINE HCL INJ 25 MG/1 ML VIAL IV PRN (01:47)
[2020-09-18] MEDS ORDERED: OXYCODONE-ACETAMINOPHEN 5-325 MG TABLET PO PRN (01:47)
[2020-09-18] MEDS ORDERED: ONDANSETRON 4 MG TAB.RAPDIS PO PRN (01:47)
[2020-09-18] MEDS: DEXTROSE 5%-1/2 NORMAL SALINE 1,000 ML IV PRN ×2 (02:47→21:11)
[2020-09-18] MEDS: IPRATROPIUM/ALBUTEROL 0.5-2.5 MG/3 ML AMPUL NEB SCH ×5 (02:47→19:43)
--- NOTE | 2020-09-18 04:05 | RADIOLOGY REPORT (SQ) ---
EXAM DESCRIPTION: CT ABDOMEN PELVIS WITHOUT IV CONTRAST COMPLETED DATE/TME: 09/18/2020 02:43 CLINICAL HISTORY: 69 years Male, abdomenal pain Comparison: 10/20/16 Technique: No contrast. Coronal and sagittal reformat. This exam was performed according to our departmental dose-optimization program, which includes automated exposure control, adjustment of the mA and/or kV according to patient size and/or use of iterative reconstruction technique.[facility]: Dose Right [facility]: CareDose [facility]: Dose Right [facility]: Teradose 4D [facility]: [employer] LIMITATIONS: Arm position. Findings: Inflamed, tensile, 4.8 cm diameter gallbladder. [id number] pericholecystic fluid. Differential diagnosis includes cholecystitis. Small atelectasis or scar at the right lung base. 1.4 cm diameter right common iliac arterial enlargement. 1.3 cm diameter left common iliac arterial enlargement. Moderate L3-L4 disc bulge. Moderate elevation of the right hemidiaphragm. No pneumoperitoneum. No evidence of appendicitis. Appendix not definitively discerned/appendectomy. No bowel obstruction. No hydronephrosis or hydroureter. No renal/ureteral stone. No evidence of abdominal aortic aneurysm. Unenhanced lower thorax, abdominopelvic structures, and musculoskeleton appear otherwise grossly unremarkable. Impression: Inflamed, tensile, 4.8 cm diameter gallbladder. [id number] pericholecystic fluid. Differential diagnosis includes cholecystitis.
[2020-09-18] MEDS ORDERED: CEFTRIAXONE 1 GM/D5W RTU 1 GM/50 ML RTUPB IV SCH (04:30)
--- NOTE | 2020-09-18 04:34 | PDOC H&P ---
History of Present Illness Admission Date/PCP: 09/18/20 00:38 ARTHUR CARSON History of Present Illness: HANNAH GEE is a 69 year old male past medical history of hypertension, dementia, who is a resident of [facility] brought to ED by EMS noted by the staff to be not eating, and being lethargic than his normal baseline. In ED he was noted to have normal vitals, urine tox negative, mild leukocytosis and thrombocytosis, mildly elevated liver chemistries otherwise normal CMP. CT head and chest x-ray were both negative for any acute abnormalities. On my encounter patient is resting in bed alert and oriented x2, very low attention span, follows commands only when he is asked several times, says no to everything upon review of systems, but on physical examination noted to have generalized abdominal pain and guarding ever when asked if he is hurting he states no. Given elevated liver chemistries mild leukocytosis and abdominal tenderness CT abdomen pelvis was obtained which came back positive for Inflamed, tensile, 4.8 cm diameter gallbladder, small to moderate pericholecystic fluid differential diagnosis cholecystitis. Past Medical History Cardiac Medical History: Reports: Hypertension Pulmonary Medical History: Reports: None EENT Medical History: Reports: None Neurological Medical History: Reports: None Endocrine Medical History: Reports: None Renal/ Medical History: Reports: None Malignancy Medical History: Reports: None GI Medical History: Reports: None Musculoskeltal Medical History: Reports: None Skin Medical History: Reports: None Psychiatric Medical History: Reports: Bipolar Disorder, Dementia, Depression Traumatic Medical History: Reports: None Infectious Medical History: Reports: None Past Surgical History Past Surgical History: Reports: None Social History Lives with: Group Home Smoking Status: Unknown if Ever Smoked Electronic Cigarette use?: No Family History Family History: Reviewed & Not Pertinent Parental Family History Reviewed: Yes Children Family History Reviewed: Yes Sibling(s) Family History Reviewed.: Yes Medication/Allergy Home Medications: Bupropion HCl [Wellbutrin 75 Mg Tablet] 75 mg PO DAILY 01/29/19 Ergocalciferol (Vitamin D2) [Vitamin D2] 50 mcg PO DAILY 01/29/19 Fenofibrate Nanocrystallized [Tricor 145 mg Tablet] 145 mg PO DAILY 01/29/19 Lorazepam [Ativan] 1 mg PO QID 01/29/19 Mirtazapine [Remeron] 30 mg PO DAILY 01/29/19 Multivitamin [Multivitamins] 1 each PO DAILY 01/29/19 Venlafaxine HCl [Effexor 75 mg Tablet] 75 mg PO BID 01/29/19 Allergies/Adverse Reactions: No Known Allergies Allergy (Verified 01/29/19 23:24) Review of Systems ROS unobtainable: Due to mental status Physical Exam Vital Signs: Temp Pulse Resp BP Pulse Ox 97.9 F 79 18 103/84 97 09/18/20 02:49 09/17/20 20:20 09/18/20 00:02 09/18/20 00:02 09/18/20 00:02 Intake & Output 09/16/20 09/17/20 09/18/20 06:59 06:59 06:59 Intake Total 500 Balance 500 General appearance: PRESENT: mild distress, well-developed, well-nourished Head exam: PRESENT: atraumatic, normocephalic Respiratory exam: PRESENT: clear to auscultation ortiz. ABSENT: rales, rhonchi, wheezes Cardiovascular exam: PRESENT: RRR. ABSENT: diastolic murmur, rubs, systolic murmur GI/Abdominal exam: PRESENT: diminished bowel sounds, firm, guarding, tenderness. ABSENT: mass, organolmegaly, rebound Neurological exam: PRESENT: alert, awake, oriented to person, CN II-XII grossly intact Skin exam: PRESENT: dry, intact, warm. ABSENT: cyanosis, rash Results Laboratory Results: 09/17/20 21:35 09/17/20 23:52 09/17/20 09/17/20 09/17/20 21:35 21:35 22:19 WBC 12.3 H RBC 4.30 L Hgb 13.9 Hct 40.6 MCV 94 MCH 32.2 MCHC 34.1 RDW 13.9 Plt Count 452 H Seg Neutrophils % 73.5 Sodium Cancelled Cancelled Potassium Cancelled Cancelled Chloride Cancelled Cancelled Carbon Dioxide Cancelled Cancelled Anion Gap Cancelled Cancelled BUN Cancelled Cancelled Creatinine Cancelled Cancelled Est GFR ( Amer) Cancelled Cancelled Est GFR (Non-Af Amer) Cancelled Cancelled Glucose Cancelled Cancelled Calcium Cancelled Cancelled Total Bilirubin Cancelled Cancelled AST Cancelled Cancelled Alkaline Phosphatase Cancelled Cancelled Ammonia Total Protein Cancelled Cancelled Albumin Cancelled Cancelled Urine Color Urine Appearance Urine pH Ur Specific [place] Urine Protein Urine Glucose (UA) Urine Ketones Urine Blood Urine Nitrite Ur Leukocyte Esterase Urine WBC (Auto) Urine RBC (Auto) 09/17/20 09/17/20 09/18/20 22:30 23:52 01:41 WBC RBC Hgb Hct MCV MCH MCHC RDW Plt Count Seg Neutrophils % Sodium 145.2 H Potassium 4.1 Chloride 107 Carbon Dioxide 29 Anion Gap 9 BUN 27 H Creatinine 0.94 Est GFR ( Amer) > 60 Est GFR (Non-Af Amer) Glucose 111 H Calcium 9.3 Total Bilirubin 0.4 AST 60 H Alkaline Phosphatase 165 H Ammonia < 8.7 L Total Protein 8.2 Albumin 3.7 Urine Color YELLOW Urine Appearance SLIGHTLY-CLOUDY Urine pH 5.0 Ur Specific [place] 1.024 Urine Protein 30 H Urine Glucose (UA) NEGATIVE Urine Ketones NEGATIVE Urine Blood NEGATIVE Urine Nitrite NEGATIVE Ur Leukocyte Esterase NEGATIVE Urine WBC (Auto) 3 Urine RBC (Auto) 2 Impressions: Head CT 09/17/20 20:56 IMPRESSION: Atrophy and chronic small vessel ischemic changes with no acute intracranial abnormality. Chest X-Ray 09/17/20 20:59 IMPRESSION: No acute disease. Assessment and Plan - Diagnosis (1) Cholecystitis Is this a current diagnosis for this admission?: Yes Plan: Presenting with leukocytosis, elevated lactic liver chemistry, anorexia and change in mental status, general abdominal tenderness and guarding. Inflamed, tensile, 4.8 cm diameter gallbladder, small to moderate pericholecystic fluid differential diagnosis cholecystitis. Admit to floor, empiric broad-spectrum IV antibiotics, blood culture, consult surgery if indicated. (2) Acute metabolic encephalopathy Is this a current diagnosis for this admission?: Yes (3) Dementia Is this a current diagnosis for this admission?: Yes Plan: Resume home meds, supportive measures. (4) Hypertension Is this a current diagnosis for this admission?: Yes Plan: Normotensive. Resume home meds. Adjust meds as needed. - Time Time Spent with patient: 35 or more minutes Anticipated Discharge Disposition: Assisted Living with Home Health Services Anticipated Discharge Timeframe: within 72 hours
--- NOTE | 2020-09-18 08:57 | EKG REPORT ---
SEVERITY:- NORMAL ECG - SINUS RHYTHM : Confirmed by: Daniele Ventura MD 18-Sep-2020 08:56:16
[2020-09-18] MEDS: ENOXAPARIN SODIUM INJ 40 MG/0.4 ML DISP.SYRIN SUBCUT SCH (11:20)
[2020-09-18] MEDS: FAMOTIDINE 20 MG TABLET PO SCH ×2 (11:44→21:10)
[2020-09-18] MEDS: DOCUSATE SODIUM 100 MG CAPSULE PO SCH (11:44)
[2020-09-18] MEDS ORDERED: PIPERACILLIN/TAZOBACTAM 3.375 GM VIAL IV SCH (14:15)
--- NOTE | 2020-09-18 15:23 | PDOC PROGRESS REPORT ---
Subjective Date:: 09/18/20 Subjective:: 69 year old male past medical history of hypertension, dementia, who is a reside nt of [facility] brought to ED by EMS noted by the staff to be not eating, and being lethargic than his normal baseline. In ED he was noted to have normal vitals, urine tox negative, mild leukocytosis and thrombocytosis, mildly elevated liver chemistries otherwise normal CMP. CT head and chest x-ray were both negative for any acute abnormalities. On my encounter patient is resting in bed alert and oriented x2, very low attention span, follows commands only when he is asked several times, says no to everything upon review of systems, but on physical examination noted to have ge neralized abdominal pain and guarding ever when asked if he is hurting he states no. Given elevated liver chemistries mild leukocytosis and abdominal tenderness CT abdomen pelvis was obtained which came back positive for Inflamed, tensile, 4.8 cm diameter gallbladder, small to moderate pericholecystic fluid differential diagnosis cholecystitis. [id number]-old male admitted from the [facility] for nonspecific reasons. I spoke to the family members as per them patient is not eating and not drinking well lately. Usually uses a wheelchair but having the frequent falls. Work-up in the ER indicate of cholecystitis. I spoke to Dr. Manzano, initial plan was for cholecystectomy. COVID-19 is negative. But after examination of the patient and a history of dementia and poor physical condition Dr. Manzano is thinking about cholecystectomy drain and antibiotic therapy at this time. If the patient shows improvement he is planning to remove the gallbladder at later stages. He also requested me to do the ultrasound of the gallbladder at this time. Patient is bedbound not communicative much. I spoke to patient's sister Adama Jung and she told me she agreed with Jose Juan recomm endations. Reason For Visit: ALTERED MENTAL STATUS Physical Exam Vital Signs: Temp Pulse Resp BP Pulse Ox 98.5 F 85 24 H 117/76 98 09/18/20 13:07 09/18/20 13:07 09/18/20 13:07 09/18/20 13:07 09/18/20 13:07 Intake & Output 09/17/20 09/18/20 09/19/20 06:59 06:59 06:59 Intake Total 550 Balance 550 General appearance: PRESENT: no acute distress, cooperative, disheveled, thin Head exam: PRESENT: atraumatic Eye exam: PRESENT: PERRLA Ear exam: PRESENT: normal external ear exam Mouth exam: PRESENT: neck supple Teeth exam: PRESENT: poor dentation Neck exam: ABSENT: carotid bruit, JVD, lymphadenopathy, thyromegaly Respiratory exam: PRESENT: decreased breath sounds Cardiovascular exam: PRESENT: RRR. ABSENT: diastolic murmur, rubs, systolic murmur GI/Abdominal exam: PRESENT: normal bowel sounds, soft. ABSENT: distended, guarding, mass, organolmegaly, rebound, tenderness Rectal exam: PRESENT: deferred Extremities exam: PRESENT: full ROM. ABSENT: calf tenderness, clubbing, pedal edema Neurological exam: PRESENT: alert, awake, oriented to person, oriented to place, oriented to time, oriented to situation, CN II-XII grossly intact. ABSENT: motor sensory deficit Psychiatric exam: PRESENT: appropriate affect, normal mood. ABSENT: homicidal ideation, suicidal ideation Results Laboratory Results: 09/17/20 21:35 09/17/20 23:52 09/17/20 09/17/20 09/17/20 21:35 21:35 22:19 WBC 12.3 H RBC 4.30 L Hgb 13.9 Hct 40.6 MCV 94 MCH 32.2 MCHC 34.1 RDW 13.9 Plt Count 452 H Seg Neutrophils % 73.5 Sodium Cancelled Cancelled Potassium Cancelled Cancelled Chloride Cancelled Cancelled Carbon Dioxide Cancelled Cancelled Anion Gap Cancelled Cancelled BUN Cancelled Cancelled Creatinine Cancelled Cancelled Est GFR ( Amer) Cancelled Cancelled Est GFR (Non-Af Amer) Cancelled Cancelled Glucose Cancelled Cancelled Calcium Cancelled Cancelled Total Bilirubin Cancelled Cancelled AST Cancelled Cancelled Alkaline Phosphatase Cancelled Cancelled Ammonia Total Protein Cancelled Cancelled Albumin Cancelled Cancelled Urine Color Urine Appearance Urine pH Ur Specific Fisher Urine Protein Urine Glucose (UA) Urine Ketones Urine Blood Urine Nitrite Ur Leukocyte Esterase Urine WBC (Auto) Urine RBC (Auto) 09/17/20 09/17/20 09/18/20 22:30 23:52 01:41 WBC RBC Hgb Hct MCV MCH MCHC RDW Plt Count Seg Neutrophils % Sodium 145.2 H Potassium 4.1 Chloride 107 Carbon Dioxide 29 Anion Gap 9 BUN 27 H Creatinine 0.94 Est GFR ( Amer) > 60 Est GFR (Non-Af Amer) Glucose 111 H Calcium 9.3 Total Bilirubin 0.4 AST 60 H Alkaline Phosphatase 165 H Ammonia < 8.7 L Total Protein 8.2 Albumin 3.7 Urine Color YELLOW Urine Appearance SLIGHTLY-CLOUDY Urine pH 5.0 Ur Specific Fisher 1.024 Urine Protein 30 H Urine Glucose (UA) NEGATIVE Urine Ketones NEGATIVE Urine Blood NEGATIVE Urine Nitrite NEGATIVE Ur Leukocyte Esterase NEGATIVE Urine WBC (Auto) 3 Urine RBC (Auto) 2 Impressions: Head CT 09/17/20 20:56 IMPRESSION: Atrophy and chronic small vessel ischemic changes with no acute intracranial abnormality. Chest X-Ray 09/17/20 20:59 IMPRESSION: No acute disease. Assessment and Plan - Diagnosis (1) Acute metabolic encephalopathy Is this a current diagnosis for this admission?: Yes Plan: 09/18/2020-patient admitted for acute metabolic encephalopathy. After talking to the family members and to the staff at [facility] my opinion is patient mental status at baseline. (2) Cholecystitis Is this a current diagnosis for this admission?: Yes Plan: Presenting with leukocytosis, elevated lactic liver chemistry, anorexia and change in mental status, general abdominal tenderness and guarding. Inflamed, tensile, 4.8 cm diameter gallbladder, small to moderate pericholecystic fluid differential diagnosis cholecystitis. Admit to floor, empiric broad-spectrum IV antibiotics, blood culture, consult surgery if indicated. 09/18/2020-patient found to have inflamed gallbladder. Radiologist impression is possible cholecystitis in the differential. Further management as per Jose Juan. (3) Dementia Is this a current diagnosis for this admission?: No Plan: Resume home meds, supportive measures. (4) Hypertension Is this a current diagnosis for this admission?: No Plan: Normotensive. Resume home meds. Adjust meds as needed. - Time Anticipated Discharge Disposition: Group Home Care Facility Anticipated Discharge Timeframe: within 72 hours
--- NOTE | 2020-09-18 16:01 | PDOC CONSULTATION ---
Consultation Consult Date: 09/18/20 Attending physician:: SOPHY SANCHEZ Provider Consulted: KAYLA WOOTEN Consult reason:: possible cholecystitis History of Present Illness Admission Date/PCP: 09/18/20 00:38 ARTHUR CARSON History of Present Illness: HANNAH GEE is a 69 year old malePatient presents to the ER for evaluation of altered mental status that reportedly began this morning. The patient lives at the [facility]. According to the staff there, he has had nothing to eat today. He has been more lethargic than normal. There is no history of fever. There is no history of nausea or vomiting. There is no history of diarrhea. There is no history of abdominal pain. There is no history of headache. There is no history of cough or congestion. There is no history of unilateral weakness or numbness. because of a sl dilated gallbladder on ct and min pericholecystic fluid, surgery was consulted for poss cholecytitis Past Medical History Cardiac Medical History: Reports: Hypertension Pulmonary Medical History: Reports: None EENT Medical History: Reports: None Neurological Medical History: Reports: None Endocrine Medical History: Reports: None Renal/ Medical History: Reports: None Malignancy Medical History: Reports: None GI Medical History: Reports: None Musculoskeltal Medical History: Reports: None Skin Medical History: Reports: None Psychiatric Medical History: Reports: Bipolar Disorder, Dementia, Depression Traumatic Medical History: Reports: None Infectious Medical History: Reports: None Past Surgical History Past Surgical History: Reports: None Social History Lives with: [facility] Smoking Status: Unknown if Ever Smoked Electronic Cigarette use?: No Family History Family History: Reviewed & Not Pertinent Parental Family History Reviewed: No Children Family History Reviewed: NA Sibling(s) Family History Reviewed.: NA Medication/Allergy Home Medications: Lorazepam [Ativan] 1 mg PO TID 01/29/19 Lisinopril [Prinivil 10 mg Tablet] 10 mg PO DAILY 09/18/20 Mirtazapine [Remeron] 30 mg PO QHS 09/18/20 Multivitamin [Tab-A-Tanya (Multiple Vitamin) Tablet] 1 tab PO DAILY 09/18/20 Olanzapine [Zyprexa 2.5 Mg Tablet] 1.25 mg PO WSUPPER 09/18/20 Venlafaxine HCl ER [Effexor Xr 75 mg Cap.sr] 150 mg PO DAILY 09/18/20 Allergies/Adverse Reactions: No Known Allergies Allergy (Verified 01/29/19 23:24) Review of Systems ROS unobtainable: Due to mental status Physical Exam Vital Signs: Temp Pulse Resp BP Pulse Ox 98.5 F 85 24 H 117/76 98 09/18/20 13:07 09/18/20 13:07 09/18/20 13:07 09/18/20 13:07 09/18/20 13:07 Intake & Output 09/17/20 09/18/20 09/19/20 06:59 06:59 06:59 Intake Total 550 530 Balance 550 530 General appearance: PRESENT: no acute distress, disheveled, thin Head exam: PRESENT: atraumatic Eye exam: PRESENT: EOMI Ear exam: PRESENT: normal external ear exam Mouth exam: PRESENT: moist Teeth exam: PRESENT: poor dentation Neck exam: PRESENT: full ROM Respiratory exam: PRESENT: clear to auscultation ortiz Cardiovascular exam: PRESENT: RRR Pulses: PRESENT: +2 pedal pulses bilateral Breast: PRESENT: Normal GI/Abdominal exam: PRESENT: soft Rectal exam: PRESENT: deferred Extremities exam: PRESENT: full ROM Musculoskeletal exam: PRESENT: full ROM Neurological exam: PRESENT: altered, aphasic Psychiatric exam: PRESENT: agitated Skin exam: PRESENT: dry Results Laboratory Results: 09/17/20 21:35 09/17/20 23:52 09/17/20 09/17/20 09/17/20 21:35 21:35 22:19 WBC 12.3 H RBC 4.30 L Hgb 13.9 Hct 40.6 MCV 94 MCH 32.2 MCHC 34.1 RDW 13.9 Plt Count 452 H Seg Neutrophils % 73.5 Sodium Cancelled Cancelled Potassium Cancelled Cancelled Chloride Cancelled Cancelled Carbon Dioxide Cancelled Cancelled Anion Gap Cancelled Cancelled BUN Cancelled Cancelled Creatinine Cancelled Cancelled Est GFR ( Amer) Cancelled Cancelled Est GFR (Non-Af Amer) Cancelled Cancelled Glucose Cancelled Cancelled Calcium Cancelled Cancelled Total Bilirubin Cancelled Cancelled AST Cancelled Cancelled Alkaline Phosphatase Cancelled Cancelled Ammonia Total Protein Cancelled Cancelled Albumin Cancelled Cancelled Urine Color Urine Appearance Urine pH Ur Specific Penrose Urine Protein Urine Glucose (UA) Urine Ketones Urine Blood Urine Nitrite Ur Leukocyte Esterase Urine WBC (Auto) Urine RBC (Auto) 09/17/20 09/17/20 09/18/20 22:30 23:52 01:41 WBC RBC Hgb Hct MCV MCH MCHC RDW Plt Count Seg Neutrophils % Sodium 145.2 H Potassium 4.1 Chloride 107 Carbon Dioxide 29 Anion Gap 9 BUN 27 H Creatinine 0.94 Est GFR ( Amer) > 60 Est GFR (Non-Af Amer) Glucose 111 H Calcium 9.3 Total Bilirubin 0.4 AST 60 H Alkaline Phosphatase 165 H Ammonia < 8.7 L Total Protein 8.2 Albumin 3.7 Urine Color YELLOW Urine Appearance SLIGHTLY-CLOUDY Urine pH 5.0 Ur Specific Penrose 1.024 Urine Protein 30 H Urine Glucose (UA) NEGATIVE Urine Ketones NEGATIVE Urine Blood NEGATIVE Urine Nitrite NEGATIVE Ur Leukocyte Esterase NEGATIVE Urine WBC (Auto) 3 Urine RBC (Auto) 2 Impressions: Head CT 09/17/20 20:56 IMPRESSION: Atrophy and chronic small vessel ischemic changes with no acute intracranial abnormality. Chest X-Ray 09/17/20 20:59 IMPRESSION: No acute disease. Assessment & Plan - Plan Summary Plan Summary: Reviewed the current laboratory studies on this patient as well as the CT scan of the abdomen. The patient does not exhibit any right upper quadrant pain or tenderness his CT scan does show some dilated gallbladder with minimal wall thickening and some mild subtle pericholecystic fluid. His white count is approximately 12,000. His liver function studies are normal. Stated by the patient's sister after I spoke with her on the phone that he has [facility] and has been slowly deteriorating deteriorating over the last few months Reviewing the CT scan I do not feel that the gallbladder is the source of the patient's deterioration. I would suggest that gallbladder ultrasound to rule out any gallstones if the patient's liver function studies worsens or his white blood count elevates and or his exam changes where he would exhibit some right upper quadrant pain you could make the argument for a percutaneously placed cholecystostomy tube, however at this point I do not feel the patient is a surgical candidate for laparoscopic cholecystectomy.
[2020-09-18] MEDS: LORAZEPAM 1 MG TABLET PO SCH (17:57)
[2020-09-18] MEDS: OLANZAPINE 2.5 MG TABLET PO SCH (17:57)
[2020-09-18] MEDS: PIPERACILLIN SODIUM/TAZOBACTAM 3.375 GM in NORMAL SALINE 100 ML IV SCH (21:10)
[2020-09-18] MEDS: MIRTAZAPINE 15 MG TABLET PO SCH (21:10)
[2020-09-18] MEDS ORDERED: MIRTAZAPINE 30 MG PO SCH (22:00)
[2020-09-19] MEDS: IPRATROPIUM/ALBUTEROL 0.5-2.5 MG/3 ML AMPUL NEB SCH ×4 (01:55→21:27)
[2020-09-19] MEDS: PIPERACILLIN SODIUM/TAZOBACTAM 3.375 GM in NORMAL SALINE 100 ML IV SCH ×3 (05:53→23:45)
--- NOTE | 2020-09-19 07:20 | RADIOLOGY REPORT (SQ) ---
EXAM DESCRIPTION: U/S ABDOMEN LIMITED W/O DOP IMAGES COMPLETED DATE/TIME: 09/18/2020 4:04 pm REASON FOR STUDY: cholecystitis R10.0 ACUTE ABDOMEN COMPARISON: None. TECHNIQUE: Dynamic and static grayscale images acquired of the abdomen and recorded on PACS. Additio nal selected color Doppler and spectral images recorded. LIMITATIONS: Limited visualization. Poor acoustical window FINDINGS: PANCREAS: Limited visualization. no masses seen LIVER: Normal size Echo texture normal. No focal masses. LIVER VASCULATURE: Normal directional flow of the main portal vein and hepatic veins. GALLBLADDER: Sludge and small stones. Gallbladder wall 4 mm. No pericholecystic fluid. ULTRASOUND-DETECTED BOB'S SIGN: Negative. INTRAHEPATIC DUCTS AND COMMON DUCT: CBD and intrahepatic ducts normal caliber. No filling defects. INFERIOR VENA CAVA: Normal flow. AORTA: No aneurysm. RIGHT KIDNEY: Normal size. Normal echogenicity. No solid or suspicious masses. No hydronephros is. No calcifications. PERITONEAL AND RIGHT PLEURAL SPACE: No ascites or effusions. OTHER: No other significant findings. IMPRESSION: Cholelithiasis. No definitive cholecystitis. TECHNICAL DOCUMENTATION: JOB ID: [id number] [employer]- All Rights Reserved Reading location - IP/workstation name: [email or web address]
[2020-09-19 08:24] LABS: ABSOLUTE BASOPHILS # (AUTO) 0.1 10^3/uL (0.0-0.2); ABSOLUTE EOSINOPHILS # (AUTO) 0.3 10^3/uL (0.0-0.6); ABSOLUTE LYMPHOCYTES (AUTO) 2.3 10^3/uL (0.5-4.7); ABSOLUTE MONOCYTES (AUTO) 0.7 10^3/uL (0.1-1.4); ABSOLUTE NEUT (AUTO) 6.4 10^3/uL (1.7-8.2); BASOPHILS % (AUTO) 0.7 % (0-2); EOSINOPHILS % (AUTO) 3.4 % (0-6); HEMATOCRIT 33.2 % (37.9-51.0); LYMPHOCYTES % (AUTO) 23.5 % (13-45); MEAN CORPUSCULAR HEMOGLOBIN 31.2 pg (27.0-33.4); MEAN CORPUSCULAR HGB CONC 33.9 g/dL (32.0-36.0); MEAN CORPUSCULAR VOLUME 92 fl (80-97); PLATELET COUNT 211 10^3/uL (150-450); RED BLOOD COUNT 3.61 10^6/uL (4.35-5.55); RED CELL DISTRIBUTION WIDTH 13.7 % (11.5-14.0); SEGMENTED NEUTROPHILS % (AUTO) 65.4 % (42-78); TOTAL CELLS COUNTED % (AUTO) 100 %; WHITE BLOOD COUNT 9.8 10^3/uL (4.0-10.5)
[2020-09-19 08:25] LABS: HEMOGLOBIN 11.3 g/dL (13.5-17.0)
[2020-09-19 09:01] LABS: ALBUMIN 2.8 g/dL (3.5-5.0); ALKALINE PHOSPHATASE 124 U/L (38-126); ANION GAP 7 (5-19); ASPARTATE AMINO TRANSFERASE 35 U/L (17-59); BILIRUBIN,DIRECT 0.1 mg/dL (0.0-0.4); BILIRUBIN,TOTAL 0.4 mg/dL (0.2-1.3); BLOOD UREA NITROGEN 11 mg/dL (7-20); CALCIUM 8.5 mg/dL (8.4-10.2); CARBON DIOXIDE 25 mmol/L (22-30); CHLORIDE 105 mmol/L (98-107); GLUCOSE 98 mg/dL (75-110); POTASSIUM 3.6 mmol/L (3.6-5.0); TOTAL PROTEIN 6.2 g/dL (6.3-8.2)
[2020-09-19] MEDS: ENOXAPARIN SODIUM INJ 40 MG/0.4 ML DISP.SYRIN SUBCUT SCH (10:09)
[2020-09-19] MEDS: MULTIVITAMIN TABLET PO SCH (10:09)
[2020-09-19] MEDS: LORAZEPAM 1 MG TABLET PO SCH ×3 (10:09→18:16)
[2020-09-19] MEDS: DOCUSATE SODIUM 100 MG CAPSULE PO SCH (10:09)
[2020-09-19] MEDS: FAMOTIDINE 20 MG TABLET PO SCH ×2 (10:09→23:05)
[2020-09-19] MEDS: VENLAFAXINE HCL 75 MG CAP.SR.24H PO SCH (10:09)
--- NOTE | 2020-09-19 10:14 | PDOC PROGRESS REPORT ---
Subjective Date:: 09/19/20 Subjective:: Patient comfortable, denies abdominal pain, the patient choked on his breakfast and vomited, speech and swallow service has been consulted Reason For Visit: ALTERED MENTAL STATUS Physical Exam Vital Signs: Temp Pulse Resp BP Pulse Ox 98.4 F 74 14 105/67 96 09/18/20 23:56 09/19/20 07:52 09/19/20 07:52 09/18/20 23:56 09/19/20 07:52 Intake & Output 09/18/20 09/19/20 09/20/20 06:59 06:59 06:59 Intake Total 550 1770 Balance 550 1770 Weight 60.5 kg General appearance: PRESENT: no acute distress, obese Respiratory exam: PRESENT: clear to auscultation ortiz Cardiovascular exam: PRESENT: RRR GI/Abdominal exam: PRESENT: Martinez's sign - Negative, normal bowel sounds, soft, other - Abdomen slightly distended for obesity, not tender, no peritoneal signs, negative palpation of the right upper quadrant Results Laboratory Results: 09/19/20 06:02 09/19/20 08:28 09/19/20 09/19/20 09/19/20 06:02 06:02 08:28 WBC 9.8 RBC 3.61 L Hgb 11.3 L D Hct 33.2 L MCV 92 MCH 31.2 MCHC 33.9 RDW 13.7 Plt Count 211 Seg Neutrophils % 65.4 Sodium Cancelled 136.9 L Potassium Cancelled 3.6 Chloride Cancelled 105 Carbon Dioxide Cancelled 25 Anion Gap Cancelled 7 BUN Cancelled 11 Creatinine Cancelled 0.90 Est GFR ( Amer) Cancelled > 60 Est GFR (Non-Af Amer) Cancelled Glucose Cancelled 98 Calcium Cancelled 8.5 Magnesium Cancelled 1.8 Total Bilirubin Cancelled 0.4 AST Cancelled 35 Alkaline Phosphatase Cancelled 124 Total Protein Cancelled 6.2 L Albumin Cancelled 2.8 L 09/18/20 04:35 Blood Blood Culture (PCR) - Final Staphylococcus Species 09/18/20 06:55 Blood Blood Culture (PCR) - Final Staphylococcus Species Impressions: Head CT 09/17/20 20:56 IMPRESSION: Atrophy and chronic small vessel ischemic changes with no acute intracranial abnormality. Chest X-Ray 09/17/20 20:59 IMPRESSION: No acute disease. Abdomen Ultrasound 09/18/20 00:00 IMPRESSION: Cholelithiasis. No definitive cholecystitis. Assessment & Plan - Diagnosis (1) Cholelithiasis Qualifiers: Cholelithiasis location: gallbladder Biliary obstruction: without biliary obstruction Is this a current diagnosis for this admission?: Yes - Time Anticipated Discharge Disposition: Half-Way Facility Anticipated Discharge Timeframe: When ready - Plan Summary Plan Summary: Assessment: Patient current mental status appropriate, he answers properly to questions Patient denies abdominal pain Emesis this morning following his breakfast; there is a concern for patient dysphagia Physical exam of the abdomen is negative Negative Martinez sign Ultrasound of the gallbladder shows cholelithiasis without evidence of cholecystitis Liver profile within normal limits with slight elevated AST Plan: No indication to perform any surgery on this patient who is completely asymptomatic, as he is affected the from a symptomatic cholelithiasis There is no evidence of acute cholecystitis, his liver numbers are within normal limits, and his physical exam is completely benign I will sign off. Please call me with questions.
--- NOTE | 2020-09-19 11:03 | RADIOLOGY REPORT (SQ) ---
EXAM DESCRIPTION: KUB/ABDOMEN (SINGLE VIEW) IMAGES COMPLETED DATE/TIME: 09/19/2020 10:52 am REASON FOR STUDY: n/v R10.0 ACUTE ABDOMEN D50.8 OTHER IRON DEFICIENCY ANEMIAS COMPARISON: None. NUMBER OF VIEWS: One view. TECHNIQUE: Supine radiographic image of the abdomen acquired. LIMITATIONS: None. FINDINGS: BOWEL GAS PATTERN: Normal bowel gas pattern. No dilated loops. CALCIFICATIONS: No suspicious calcifications. SOFT TISSUES: No gross mass or suggestion of organomegaly. HARDWARE: None in the abdomen. BONES: No acute fracture. No worrisome bone lesions. OTHER: No other significant finding. IMPRESSION: NO RADIOGRAPHIC EVIDENCE FOR ACUTE ABDOMINAL DISEASE. TECHNICAL DOCUMENTATION: JOB ID: [id number] [employer]- All Rights Reserved Reading location - IP/workstation name: [email or web address]
--- NOTE | 2020-09-19 11:06 | PDOC PROGRESS REPORT ---
Subjective Date:: 09/19/20 Subjective:: 69 year old male past medical history of hypertension, dementia, who is a reside nt of [facility] brought to ED by EMS noted by the staff to be not eating, and being lethargic than his normal baseline. In ED he was noted to have normal vitals, urine tox negative, mild leukocytosis and thrombocytosis, mildly elevated liver chemistries otherwise normal CMP. CT head and chest x-ray were both negative for any acute abnormalities. On my encounter patient is resting in bed alert and oriented x2, very low attention span, follows commands only when he is asked several times, says no to everything upon review of systems, but on physical examination noted to have ge neralized abdominal pain and guarding ever when asked if he is hurting he states no. Given elevated liver chemistries mild leukocytosis and abdominal tenderness CT abdomen pelvis was obtained which came back positive for Inflamed, tensile, 4.8 cm diameter gallbladder, small to moderate pericholecystic fluid differential diagnosis cholecystitis. [id number]-[id number]-old male admitted from the [facility] for nonspecific reasons. I spoke to the family members as per them patient is not eating and not drinking well lately. Usually uses a wheelchair but having the frequent falls. Work-up in the ER indicate of cholecystitis. I spoke to Dr. Manzano, initial plan was for cholecystectomy. COVID-19 is negative. But after examination of the patient and a history of dementia and poor physical condition Dr. Manzano is thinking about cholecystectomy drain and antibiotic therapy at this time. If the patient shows improvement he is planning to remove the gallbladder at later stages. He also requested me to do the ultrasound of the gallbladder at this time. Patient is bedbound not communicative much. I spoke to patient's sister Adama Jung and she told me she agreed with Jose Juan recomm endations. [id number]-dzsw-old male with history of dementia admitted from the [facility] assisted living. Initial impression is patient may need a cholecystectomy. Dr. Alcaraz spoke to me and he reviewed the ultrasound of the gallbladder his impression is no evidence of acute cholecystitis. Gallbladder with gallstones present. Surgery is going to sign off. Blood cultures are positive for group B streptococcus. Patient presently on IV Zosyn. Speech consult was done there impression is patient need a modified barium swallow. He threw up this morning plan is to do the KUB. Labs are stable. Acute kidney injury is resolved. Hyperkalemia resolving. Reason For Visit: ALTERED MENTAL STATUS Physical Exam Vital Signs: Temp Pulse Resp BP Pulse Ox 98.4 F 74 14 105/67 96 09/18/20 23:56 09/19/20 07:52 09/19/20 07:52 09/18/20 23:56 09/19/20 07:52 Intake & Output 09/18/20 09/19/20 09/20/20 06:59 06:59 06:59 Intake Total 550 1770 Balance 550 1770 Weight 60.5 kg General appearance: PRESENT: no acute distress, cooperative, thin Head exam: PRESENT: atraumatic Eye exam: PRESENT: PERRLA Mouth exam: PRESENT: moist, tongue midline Teeth exam: PRESENT: poor dentation Neck exam: ABSENT: carotid bruit, JVD, lymphadenopathy, thyromegaly Respiratory exam: PRESENT: decreased breath sounds Cardiovascular exam: PRESENT: RRR. ABSENT: diastolic murmur, rubs, systolic murmur GI/Abdominal exam: PRESENT: normal bowel sounds, soft. ABSENT: distended, guarding, mass, organolmegaly, rebound, tenderness Rectal exam: PRESENT: deferred Extremities exam: PRESENT: full ROM. ABSENT: calf tenderness, clubbing, pedal edema Neurological exam: PRESENT: alert, awake, oriented to person, oriented to place, oriented to time, oriented to situation, CN II-XII grossly intact. ABSENT: motor sensory deficit Psychiatric exam: PRESENT: appropriate affect, normal mood. ABSENT: homicidal ideation, suicidal ideation Results Laboratory Results: 09/19/20 06:02 09/19/20 08:28 09/19/20 09/19/20 09/19/20 06:02 06:02 08:28 WBC 9.8 RBC 3.61 L Hgb 11.3 L D Hct 33.2 L MCV 92 MCH 31.2 MCHC 33.9 RDW 13.7 Plt Count 211 Seg Neutrophils % 65.4 Sodium Cancelled 136.9 L Potassium Cancelled 3.6 Chloride Cancelled 105 Carbon Dioxide Cancelled 25 Anion Gap Cancelled 7 BUN Cancelled 11 Creatinine Cancelled 0.90 Est GFR ( Amer) Cancelled > 60 Est GFR (Non-Af Amer) Cancelled Glucose Cancelled 98 Calcium Cancelled 8.5 Magnesium Cancelled 1.8 Total Bilirubin Cancelled 0.4 AST Cancelled 35 Alkaline Phosphatase Cancelled 124 Total Protein Cancelled 6.2 L Albumin Cancelled 2.8 L 09/18/20 04:35 Blood Blood Culture (PCR) - Final Staphylococcus Species 09/18/20 06:55 Blood Blood Culture (PCR) - Final Staphylococcus Species Impressions: Head CT 09/17/20 20:56 IMPRESSION: Atrophy and chronic small vessel ischemic changes with no acute intracranial abnormality. Chest X-Ray 09/17/20 20:59 IMPRESSION: No acute disease. Abdomen Ultrasound 09/18/20 00:00 IMPRESSION: Cholelithiasis. No definitive cholecystitis. Assessment and Plan - Diagnosis (1) Acute metabolic encephalopathy Is this a current diagnosis for this admission?: Yes Plan: 09/18/2020-patient admitted for acute metabolic encephalopathy. After talking to the family members and to the staff at [facility] my opinion is patient mental status at baseline. 09/19/20-patient admitted with acute metabolic encephalopathy. Mental status is back to baseline. Patient is more alert more awake communicating well. (2) Cholecystitis Is this a current diagnosis for this admission?: Yes Plan: Presenting with leukocytosis, elevated lactic liver chemistry, anorexia and change in mental status, general abdominal tenderness and guarding. Inflamed, tensile, 4.8 cm diameter gallbladder, small to moderate pericholecystic fluid differential diagnosis cholecystitis. Admit to floor, empiric broad-spectrum IV antibiotics, blood culture, consult surgery if indicated. 09/18/2020-patient found to have inflamed gallbladder. Radiologist impression is possible cholecystitis in the differential. Further management as per Jose Juan. 09/19/20-ultrasound of the gallbladder indicative of cholelithiasis. Cholecystitis is unlikely. Surgery is planning to sign off. (3) Dementia Is this a current diagnosis for this admission?: No Plan: Resume home meds, supportive measures. (4) Hypertension Is this a current diagnosis for this admission?: No Plan: Normotensive. Resume home meds. Adjust meds as needed. (5) Sepsis Is this a current diagnosis for this admission?: Yes Plan: 09/19/2020-patient came in with altered mental status, elevated WBC count, blood cultures came back positive for group B strep. Patient also presented with PETR. Meeting the criteria for sepsis. Patient is presently on IV Zosyn. - Time Anticipated [facility]charge [facility] Anticipated Discharge Timeframe: within 72 hours
--- NOTE | 2020-09-19 13:39 | RADIOLOGY REPORT (SQ) ---
EXAM DESCRIPTION: COOKIE SWALLOW IMAGES COMPLETED DATE/TIME: 09/19/2020 1:05 pm REASON FOR STUDY: dysphagia R10.0 ACUTE ABDOMEN D50.8 OTHER IRON DEFICIENCY ANEMIAS COMPARISON: None. TECHNIQUE: Videofluoroscopic swallowing examination was performed in conjunction with speech patholo gy. Videofluoroscopic imaging was obtained and reviewed and these are the findings: RADIATION DOSE: Fluoro time 1.3 minutes 1 images saved to PACS. LIMITATIONS: None FINDINGS: The patient was brought into the fluoro room and placed upright on a modified barium swall ow chair. The patient was then given multiple consistencies mixed with barium to swallow under live fluoroscopic video guidance. According to the Speech Pathologist there was no penetration or aspirat ion. Please refer to the speech pathology report for further details. IMPRESSION: NO EVIDENCE OF PENETRATION OR ASPIRATION. PLEASE SEE SPEECH PATHOLOGIST REPORT FOR OTHER FINDINGS AND RECOMMENDATIONS. COMMENT: None Quality ID [id number]: Final reports for procedures using fluoroscopy that document radiation exposure nitza dylan, or exposure time and number of fluorographic images (if radiation exposure indices are not avail able) TECHNICAL DOCUMENTATION: JOB ID: [id number] 2010 [employer]- All Rights Reserved Reading location - IP/workstation name: [email or web address]
--- NOTE | 2020-09-19 17:16 | ST Inp Modified Barium Swallow ---
Medical Diagnosis - Medical Diagnoses Medical Diagnosis Description & ICD-10 Code(s): Sepsis Inpatient [facility] [place] - General Date: 09/19/20 Date of Onset: 09/17/20 - History History Obtained From: Patient Medical History: The pts PMH is significant for HTN, dementia, bipolar disorder, depression. He is currently a resident at [facility]. He was brought to the ED d/t not eating and increased lethargic state. The pt was previously seen by ST earlier this date and was significant for overt s/s of aspiration characterized by coughing with delay of thin liquids throughout assessment. Medications: Medications Reviewed Allergies: Refer to medical record - Subjective Current Nutritional Means: PO Current PO Diet: Regular Current Symptoms: Coughing Pain: 0/5 - Objective Assessment: Upright - Food Trials Food Trials Used: Thin liquids, Pureed, Regular The Patient: Was Able to Self Feed, Required Assist, via cup, via spoon, via straw - Assessment Labial Function: Within Normal Limits Lingual Function: Within Normal Limits Mandibular Function: Within Normal Limits Dentition: Partial - Pharyngeal Stage Pahryngeal Stage Comments: The pts swallow function was largely insignificant for dysphagia. The pt had x2 instances of bolus, thin liquid via tsp and regular solid, staying within the velecullar space with self-cued dry swallows to fully clear. The pt had no instances of oral or pharyngeal residue, airway compromise, or retrograde movement of bolus. All oropharyngeal structures function were typical given his age. Of note, at the end of the assessment the pt was observed as having deep, strong cough observed in clinical swallow assessment. Recommend: regular/ thin diet. Pt can tolerate straws or cup. Meds with liquid or puree. Given dx of dementia the pt would benefit from self-feeding with stand-by assist to aid in controlling bolus size and pace of meal. Also, would benefit from liquid washes and aid to ensure that no oral holding of solids takes place. - Esophageal Stage Cricophageal Function: Normal Upper Esophageal Transit: Normal Esophageal Stasis/Dysmotility: No Cervical Osteophytes Noted: No Esophageal Stage Comments: WFL - Impression/Summary Laryngeal Penetration: No Tracheal Aspiration: no Productive Cough: No - Not during assessment Patient Presents With: Normal swallow at eval, s/s reflux Risk of Aspiration: Minimal Risk of Nutritional Compromise: Mild Risk Due To: Liekly will require assistance at mealtimes - Recommendations Solid Diet Recommendations: Chopped Meat, Regular Liquid Diet Recommendations: Thin Regular Diet: Yes Strict Aspitarion Precautions: Yes Dysphagia Therapy with PRE BILLING CLINICIAN: No Recommended Techniques: Fully Upright During Meal, Check Mouth for Pocketing, Dry Swallow After Bite, Small Bites and Sips, Alternate Bites/Sips, external pacing Supervision: Constant, requires assistance - Time Total Time: 20 Total Timed Minutes: 20
[2020-09-19] MEDS: OLANZAPINE 2.5 MG TABLET PO SCH (18:16)
[2020-09-19] MEDS: MIRTAZAPINE 15 MG TABLET PO SCH (23:05)
[2020-09-19] MEDS: DEXTROSE 5%-1/2 NORMAL SALINE 1,000 ML IV PRN (23:46)
[2020-09-20] MEDS: IPRATROPIUM/ALBUTEROL 0.5-2.5 MG/3 ML AMPUL NEB SCH ×4 (02:27→20:37)
[2020-09-20] MEDS: PIPERACILLIN SODIUM/TAZOBACTAM 3.375 GM in NORMAL SALINE 100 ML IV SCH (05:45)
[2020-09-20 06:48] LABS: ABSOLUTE EOSINOPHILS # (AUTO) 0.4 10^3/uL (0.0-0.6); ABSOLUTE MONOCYTES (AUTO) 0.6 10^3/uL (0.1-1.4); ABSOLUTE NEUT (AUTO) 4.2 10^3/uL (1.7-8.2); BASOPHILS % (AUTO) 0.4 % (0-2); EOSINOPHILS % (AUTO) 5.5 % (0-6); HEMATOCRIT 31.2 % (37.9-51.0); HEMOGLOBIN 10.7 g/dL (13.5-17.0); MEAN CORPUSCULAR HEMOGLOBIN 31.8 pg (27.0-33.4); MEAN CORPUSCULAR HGB CONC 34.4 g/dL (32.0-36.0); MEAN CORPUSCULAR VOLUME 92 fl (80-97); PLATELET COUNT 271 10^3/uL (150-450); RED BLOOD COUNT 3.37 10^6/uL (4.35-5.55); RED CELL DISTRIBUTION WIDTH 13.7 % (11.5-14.0); SEGMENTED NEUTROPHILS % (AUTO) 58.1 % (42-78); TOTAL CELLS COUNTED % (AUTO) 100 %; WHITE BLOOD COUNT 7.2 10^3/uL (4.0-10.5)
[2020-09-20 07:05] LABS: ALBUMIN 2.7 g/dL (3.5-5.0); ALKALINE PHOSPHATASE 107 U/L (38-126); ANION GAP 8 (5-19); ASPARTATE AMINO TRANSFERASE 29 U/L (17-59); BILIRUBIN,DIRECT 0.1 mg/dL (0.0-0.4); BILIRUBIN,TOTAL 0.4 mg/dL (0.2-1.3); BLOOD UREA NITROGEN 6 mg/dL (7-20); CALCIUM 8.5 mg/dL (8.4-10.2); CARBON DIOXIDE 25 mmol/L (22-30); CHLORIDE 108 mmol/L (98-107); GLUCOSE 109 mg/dL (75-110); POTASSIUM 3.8 mmol/L (3.6-5.0); TOTAL PROTEIN 6.1 g/dL (6.3-8.2)
[2020-09-20] MEDS: MULTIVITAMIN TABLET PO SCH (09:39)
[2020-09-20] MEDS: FAMOTIDINE 20 MG TABLET PO SCH ×2 (09:39→22:36)
[2020-09-20] MEDS: DOCUSATE SODIUM 100 MG CAPSULE PO SCH (09:39)
[2020-09-20] MEDS: LORAZEPAM 1 MG TABLET PO SCH ×3 (09:39→18:13)
[2020-09-20] MEDS: ENOXAPARIN SODIUM INJ 40 MG/0.4 ML DISP.SYRIN SUBCUT SCH (09:39)
[2020-09-20] MEDS: VENLAFAXINE HCL 75 MG CAP.SR.24H PO SCH (09:44)
--- NOTE | 2020-09-20 11:57 | PDOC PROGRESS REPORT ---
Subjective Date:: 09/20/20 Subjective:: 69 year old male past medical history of hypertension, dementia, who is a reside nt of [facility] brought to ED by EMS noted by the staff to be not eating, and being lethargic than his normal baseline. In ED he was noted to have normal vitals, urine tox negative, mild leukocytosis and thrombocytosis, mildly elevated liver chemistries otherwise normal CMP. CT head and chest x-ray were both negative for any acute abnormalities. On my encounter patient is resting in bed alert and oriented x2, very low attention span, follows commands only when he is asked several times, says no to everything upon review of systems, but on physical examination noted to have ge neralized abdominal pain and guarding ever when asked if he is hurting he states no. Given elevated liver chemistries mild leukocytosis and abdominal tenderness CT abdomen pelvis was obtained which came back positive for Inflamed, tensile, 4.8 cm diameter gallbladder, small to moderate pericholecystic fluid differential diagnosis cholecystitis. 09/[id number]-[id number]-old male admitted from the [facility] for nonspecific reasons. I spoke to the family members as per them patient is not eating and not drinking well lately. Usually uses a wheelchair but having the frequent falls. Work-up in the ER indicate of cholecystitis. I spoke to Dr. Manzano, initial plan was for cholecystectomy. COVID-19 is negative. But after examination of the patient and a history of dementia and poor physical condition Dr. Manzano is thinking about cholecystectomy drain and antibiotic therapy at this time. If the patient shows improvement he is planning to remove the gallbladder at later stages. He also requested me to do the ultrasound of the gallbladder at this time. Patient is bedbound not communicative much. I spoke to patient's sister Adama Jung and she told me she agreed with Jose Juan recomm endations. 09/[id number]-eczw-old male with history of dementia admitted from the [facility] assisted living. Initial impression is patient may need a cholecystectomy. Dr. Alcaraz spoke to me and he reviewed the ultrasound of the gallbladder his impression is no evidence of acute cholecystitis. Gallbladder with gallstones present. Surgery is going to sign off. Blood cultures are positive for group B streptococcus. Patient presently on IV Zosyn. Speech consult was done there impression is patient need a modified barium swallow. He threw up this morning plan is to do the KUB. Labs are stable. Acute kidney injury is resolved. Hyperkalemia resolving. 09/20/[id number]-wobg-old male admitted from [facility]. In addition patient was patient may have acute cholecystitis. Ultrasound of the gallbladder indicated with gallstones. Patient's appetite is still poor. Speech evaluation done, to follow the recommendations as per the speech therapist. Reason For Visit: ALTERED MENTAL STATUS Physical Exam Vital Signs: Temp Pulse Resp BP Pulse Ox 97.6 F 92 16 101/65 99 09/20/20 08:00 09/20/20 08:36 09/20/20 08:36 09/20/20 08:00 09/20/20 08:36 Intake & Output 09/19/20 09/20/20 09/21/20 06:59 06:59 06:59 Intake Total 1770 1120 Balance 1770 1120 Weight 60.5 kg 60.3 kg General appearance: PRESENT: no acute distress, cooperative Head exam: PRESENT: atraumatic Eye exam: PRESENT: conjunctiva pale, PERRLA Throat exam: PRESENT: tonsillar erythema Neck exam: PRESENT: lymphadenopathy Respiratory exam: PRESENT: decreased breath sounds Cardiovascular exam: PRESENT: RRR. ABSENT: diastolic murmur, rubs, systolic murmur Pulses: PRESENT: normal dorsalis pedis pul GI/Abdominal exam: PRESENT: normal bowel sounds, soft. ABSENT: distended, guarding, mass, organolmegaly, rebound, tenderness Rectal exam: PRESENT: deferred Extremities exam: PRESENT: full ROM. ABSENT: calf tenderness, clubbing, pedal edema Neurological exam: PRESENT: alert, awake, oriented to person, oriented to place, oriented to time, oriented to situation, CN II-XII grossly intact. ABSENT: motor sensory deficit Psychiatric exam: PRESENT: appropriate affect, normal mood. ABSENT: homicidal ideation, suicidal ideation Results Laboratory Results: 09/20/20 06:14 09/20/20 06:14 09/20/20 09/20/20 06:14 06:14 WBC 7.2 RBC 3.37 L Hgb 10.7 L Hct 31.2 L MCV 92 MCH 31.8 MCHC 34.4 RDW 13.7 Plt Count 271 Seg Neutrophils % 58.1 Sodium 140.8 Potassium 3.8 Chloride 108 H Carbon Dioxide 25 Anion Gap 8 BUN 6 L Creatinine 0.93 Est GFR ( Amer) > 60 Glucose 109 Calcium 8.5 Magnesium 1.9 Total Bilirubin 0.4 AST 29 Alkaline Phosphatase 107 Total Protein 6.1 L Albumin 2.7 L 09/18/20 04:35 Blood Blood Culture (PCR) - Final Staphylococcus Species 09/18/20 04:35 Blood Blood Culture - Final Staphylococcus Epidermidis Group B Beta Streptococcus 09/18/20 06:55 Blood Blood Culture (PCR) - Final Staphylococcus Species Impressions: Head CT 09/17/20 20:56 IMPRESSION: Atrophy and chronic small vessel ischemic changes with no acute intracranial abnormality. Chest X-Ray 09/17/20 20:59 IMPRESSION: No acute disease. Abdomen Ultrasound 09/18/20 00:00 IMPRESSION: Cholelithiasis. No definitive cholecystitis. KUB X-Ray 09/19/20 00:00 IMPRESSION: NO RADIOGRAPHIC EVIDENCE FOR ACUTE ABDOMINAL DISEASE. Modified Barium Swallow 09/19/20 00:00 IMPRESSION: NO EVIDENCE OF PENETRATION OR ASPIRATION. PLEASE SEE SPEECH PAT HOLOGIST REPORT FOR OTHER FINDINGS AND RECOMMENDATIONS. Assessment and Plan - Diagnosis (1) Acute metabolic encephalopathy Is this a current diagnosis for this admission?: Yes Plan: 09/18/2020-patient admitted for acute metabolic encephalopathy. After talking to the family members and to the staff at [facility] my opinion is patient mental status at baseline. 09/19/20-patient admitted with acute metabolic encephalopathy. Mental status is back to baseline. Patient is more alert more awake communicating well. 09/20/20-patient admitted for acute metabolic encephalopathy. Mental status back to baseline. (2) Cholecystitis Is this a current diagnosis for this admission?: Yes Plan: Presenting with leukocytosis, elevated lactic liver chemistry, anorexia and change in mental status, general abdominal tenderness and guarding. Inflamed, tensile, 4.8 cm diameter gallbladder, small to moderate pericholecystic fluid differential diagnosis cholecystitis. Admit to floor, empiric broad-spectrum IV antibiotics, blood culture, consult surgery if indicated. 09/18/2020-patient found to have inflamed gallbladder. Radiologist impression is possible cholecystitis in the differential. Further management as per Mic sow. 09/19/20-ultrasound of the gallbladder indicative of cholelithiasis. Cholecystitis is unlikely. Surgery is planning to sign off. 09/20/2020-surgical team signed off. Ultrasound of the gallbladder indicative of gallstones. (3) Dementia Is this a current diagnosis for this admission?: No Plan: Resume home meds, supportive measures. (4) Hypertension Is this a current diagnosis for this admission?: No Plan: Normotensive. Resume home meds. Adjust meds as needed. (5) Sepsis Is this a current diagnosis for this admission?: Yes Plan: 09/19/2020-patient came in with altered mental status, elevated WBC count, blood cultures came back positive for group B strep. Patient also presented with PETR. Meeting the criteria for sepsis. Patient is presently on IV Zosyn. 09/20/2020-patient is presently on IV Zosyn. Blood cultures growing group B streptococcus. - Time Anticipated [facility]charge [facility] Anticipated Discharge Timeframe: within 72 hours
--- NOTE | 2020-09-20 16:01 | RADIOLOGY REPORT (SQ) ---
EXAM DESCRIPTION: CHEST SINGLE VIEW IMAGES COMPLETED DATE/TIME: 09/20/2020 3:38 pm REASON FOR STUDY: dysnea COMPARISON: 09/17/2020 NUMBER OF VIEWS: One view. TECHNIQUE: Single frontal radiographic image of the chest acquired. LIMITATIONS: None. FINDINGS: LUNGS AND PLEURA: Subsegmental airspace opacity in the right lower lobe. Chronic elevatio n right diaphragm. Left lung is clear. MEDIASTINUM AND HEART: Stable heart size and mediastinal structures. BONY STRUCTURES: No acute findings. HARDWARE: None. OTHER: No other significant finding. IMPRESSION: Atelectasis or early infiltrate right lower lobe. TECHNICAL DOCUMENTATION: JOB ID: [id number] Reading location - IP/workstation name: [email or web address]
[2020-09-20] MEDS: OLANZAPINE 2.5 MG TABLET PO SCH (18:13)
[2020-09-20] MEDS: MIRTAZAPINE 15 MG TABLET PO SCH (22:36)
[2020-09-20] MEDS: DEXTROSE 5%-1/2 NORMAL SALINE 1,000 ML IV PRN (22:36)
[2020-09-21] MEDS: IPRATROPIUM/ALBUTEROL 0.5-2.5 MG/3 ML AMPUL NEB SCH ×4 (02:38→20:54)
[2020-09-21] MEDS: FAMOTIDINE 20 MG TABLET PO SCH ×2 (09:57→22:08)
[2020-09-21] MEDS: MULTIVITAMIN TABLET PO SCH (09:57)
[2020-09-21] MEDS: DOCUSATE SODIUM 100 MG CAPSULE PO SCH (09:57)
[2020-09-21] MEDS: LORAZEPAM 1 MG TABLET PO SCH ×3 (09:58→18:08)
[2020-09-21] MEDS: VENLAFAXINE HCL 75 MG CAP.SR.24H PO SCH (09:58)
[2020-09-21] MEDS ORDERED: CEFTRIAXONE 1 GM/D5W RTU 1 GM/50 ML RTUPB IV SCH (10:00)
[2020-09-21] MEDS: ENOXAPARIN SODIUM INJ 40 MG/0.4 ML DISP.SYRIN SUBCUT SCH (10:04)
[2020-09-21] MEDS ORDERED: GUAIFENESIN/D-METHORPHAN (200-20 MG) SYRUP 10 ML PO PRN (12:10)
--- NOTE | 2020-09-21 12:14 | PDOC PROGRESS REPORT ---
Subjective Date:: 09/21/20 Subjective:: 69 year old male past medical history of hypertension, dementia, who is a reside nt of [facility] brought to ED by EMS noted by the staff to be not eating, and being lethargic than his normal baseline. In ED he was noted to have normal vitals, urine tox negative, mild leukocytosis and thrombocytosis, mildly elevated liver chemistries otherwise normal CMP. CT head and chest x-ray were both negative for any acute abnormalities. On my encounter patient is resting in bed alert and oriented x2, very low attention span, follows commands only when he is asked several times, says no to everything upon review of systems, but on physical examination noted to have ge neralized abdominal pain and guarding ever when asked if he is hurting he states no. Given elevated liver chemistries mild leukocytosis and abdominal tenderness CT abdomen pelvis was obtained which came back positive for Inflamed, tensile, 4.8 cm diameter gallbladder, small to moderate pericholecystic fluid differential diagnosis cholecystitis. [id number]-old male admitted from the [facility] for nonspecific reasons. I spoke to the family members as per them patient is not eating and not drinking well lately. Usually uses a wheelchair but having the frequent falls. Work-up in the ER indicate of cholecystitis. I spoke to Dr. Manzano, initial plan was for cholecystectomy. COVID-19 is negative. But after examination of the patient and a history of dementia and poor physical condition Dr. Manzano is thinking about cholecystectomy drain and antibiotic therapy at this time. If the patient shows improvement he is planning to remove the gallbladder at later stages. He also requested me to do the ultrasound of the gallbladder at this time. Patient is bedbound not communicative much. I spoke to patient's sister Adama Jung and she told me she agreed with Jose Juan recomm endations. [id number]-old male with history of dementia admitted from the [facility] assisted living. Initial impression is patient may need a cholecystectomy. Dr. Alcaraz spoke to me and he reviewed the ultrasound of the gallbladder his impression is no evidence of acute cholecystitis. Gallbladder with gallstones present. Surgery is going to sign off. Blood cultures are positive for group B streptococcus. Patient presently on IV Zosyn. Speech consult was done there impression is patient need a modified barium swallow. He threw up this morning plan is to do the KUB. Labs are stable. Acute kidney injury is resolved. Hyperkalemia resolving. 09/[id number]-old male admitted from [facility]. In addition patient was patient may have acute cholecystitis. Ultrasound of the gallbladder indicated with gallstones. Patient's appetite is still poor. Speech evaluation done, to follow the recommendations as per the speech therapist. 09/21/2020-no acute events in the last 24 hours. Patient is receiving IV Rocephin at this time. Abdomen is soft nontender examination is benign. Afebrile. Nurses are noticing persistent cough. To provide cough medication at this [facility]. Reason For Visit: POSITIVE BLOOD CULTURE Physical Exam Vital Signs: Temp Pulse Resp BP Pulse Ox 97.9 F 86 25 H 108/64 99 09/21/20 11:38 09/21/20 11:38 09/21/20 11:38 09/21/20 11:38 09/21/20 11:38 Intake & Output 09/20/20 09/21/20 09/22/20 06:59 06:59 06:59 Intake Total 1120 1000 50 Balance 1120 1000 50 Weight 60.3 kg 60.3 kg General appearance: PRESENT: no acute distress, cooperative Head exam: PRESENT: atraumatic Eye exam: PRESENT: conjunctiva pale, PERRLA Ear exam: PRESENT: normal external ear exam Mouth exam: PRESENT: moist, tongue midline Teeth exam: PRESENT: poor dentation Neck exam: ABSENT: carotid bruit, JVD, lymphadenopathy, thyromegaly Respiratory exam: PRESENT: decreased breath sounds Cardiovascular exam: PRESENT: RRR. ABSENT: diastolic murmur, rubs, systolic murmur Pulses: PRESENT: normal dorsalis pedis pul GI/Abdominal exam: PRESENT: normal bowel sounds, soft. ABSENT: distended, guarding, mass, organolmegaly, rebound, tenderness Rectal exam: PRESENT: deferred Extremities exam: PRESENT: full ROM. ABSENT: calf tenderness, clubbing, pedal edema Neurological exam: PRESENT: awake Psychiatric exam: PRESENT: appropriate affect, normal mood. ABSENT: homicidal i deation, suicidal ideation Results Laboratory Results: 09/20/20 06:14 09/20/20 06:14 09/18/20 06:55 Blood Blood Culture (PCR) - Final Staphylococcus Species 09/18/20 04:35 Blood Blood Culture (PCR) - Final Staphylococcus Species 09/18/20 04:35 Blood Blood Culture - Final Staphylococcus Epidermidis Group B Beta Streptococcus Impressions: Head CT 09/17/20 20:56 IMPRESSION: Atrophy and chronic small vessel ischemic changes with no acute intracranial abnormality. Abdomen Ultrasound 09/18/20 00:00 IMPRESSION: Cholelithiasis. No definitive cholecystitis. KUB X-Ray 09/19/20 00:00 IMPRESSION: NO RADIOGRAPHIC EVIDENCE FOR ACUTE ABDOMINAL DISEASE. Modified Barium Swallow 09/19/20 00:00 IMPRESSION: NO EVIDENCE OF PENETRATION OR ASPIRATION. PLEASE SEE SPEECH PATHOLOGIST REPORT FOR OTHER FINDINGS AND RECOMMENDATIONS. Chest X-Ray 09/20/20 00:00 IMPRESSION: Atelectasis or early infiltrate right lower lobe. Assessment and Plan - Diagnosis (1) Acute metabolic encephalopathy Is this a current diagnosis for this admission?: Yes Plan: 09/18/2020-patient admitted for acute metabolic encephalopathy. After talking to the family members and to the staff at [facility] my opinion is patient mental status at baseline. 09/19/20-patient admitted with acute metabolic encephalopathy. Mental status is back to baseline. Patient is more alert more awake communicating well. 09/20/20-patient admitted for acute metabolic encephalopathy. Mental status back to baseline. 09/21/2019-patient admitted with acute metabolic encephalopathy. Mental status is back to baseline at this time. (2) Cholecystitis Is this a current diagnosis for this admission?: Yes Plan: Presenting with leukocytosis, elevated lactic liver chemistry, anorexia and change in mental status, general abdominal tenderness and guarding. Inflamed, tensile, 4.8 cm diameter gallbladder, small to moderate pericholecystic fluid differential diagnosis cholecystitis. Admit to floor, empiric broad-spectrum IV antibiotics, blood culture, consult surgery if indicated. 09/18/2020-patient found to have inflamed gallbladder. Radiologist impression is possible cholecystitis in the differential. Further management as per [place]. 09/19/20-ultrasound of the gallbladder indicative of cholelithiasis. Cholecystitis is unlikely. Surgery is planning to sign off. 09/20/2020-surgical team signed off. Ultrasound of the gallbladder indicative o f gallstones. 09/21/2019-abdomen on examination is benign. Ultrasound of the gallbladder indicate if of gallstones, acute cholecystitis is ruled out by the surgical team. (3) Dementia Is this a current diagnosis for this admission?: No Plan: Resume home meds, supportive measures. (4) Hypertension Is this a current diagnosis for this admission?: No Plan: Normotensive. Resume home meds. Adjust meds as needed. (5) Sepsis Is this a current diagnosis for this admission?: Yes Plan: 09/19/2020-patient came in with altered mental status, elevated WBC count, blood cultures came back positive for group B strep. Patient also presented with PETR. Meeting the criteria for sepsis. Patient is presently on IV Zosyn. 09/20/2020-patient is presently on IV Zosyn. Blood cultures growing group B s treptococcus. 09/21/2020-blood cultures are growing Staph epidermidis, but group B streptococcus. To start on IV vancomycin from today pharmacy is going to dose the medication. - Time Anticipated Discharge Disposition: [facility] Anticipated Discharge Timeframe: within 72 hours
[2020-09-21] MEDS: VANCOMYCIN HCL 750 MG in DEXTROSE 5%-WATER 250 ML IV SCH (15:22)
[2020-09-21] MEDS: OLANZAPINE 2.5 MG TABLET PO SCH (18:08)
[2020-09-21] MEDS: DEXTROSE 5%-1/2 NORMAL SALINE 1,000 ML IV PRN (18:11)
[2020-09-21] MEDS: MIRTAZAPINE 15 MG TABLET PO SCH (22:08)
[2020-09-22] MEDS: VANCOMYCIN HCL 750 MG in DEXTROSE 5%-WATER 250 ML IV SCH ×2 (01:01→14:34)
[2020-09-22] MEDS: IPRATROPIUM/ALBUTEROL 0.5-2.5 MG/3 ML AMPUL NEB SCH ×4 (02:44→19:56)
[2020-09-22] MEDS: VENLAFAXINE HCL 75 MG CAP.SR.24H PO SCH (09:15)
[2020-09-22] MEDS: MULTIVITAMIN TABLET PO SCH (09:15)
[2020-09-22] MEDS: DOCUSATE SODIUM 100 MG CAPSULE PO SCH (09:15)
[2020-09-22] MEDS: FAMOTIDINE 20 MG TABLET PO SCH (09:16)
[2020-09-22] MEDS: LORAZEPAM 1 MG TABLET PO SCH ×3 (09:16→17:53)
[2020-09-22] MEDS ORDERED: VANCOMYCIN HCL INJ 1000 MG VIAL IV SCH (10:00)
[2020-09-22 10:21] LABS: HEMATOCRIT 36.9 % (37.9-51.0); HEMOGLOBIN 12.6 g/dL (13.5-17.0); MEAN CORPUSCULAR HEMOGLOBIN 31.6 pg (27.0-33.4); MEAN CORPUSCULAR HGB CONC 34.1 g/dL (32.0-36.0); MEAN CORPUSCULAR VOLUME 93 fl (80-97); PLATELET COUNT 276 10^3/uL (150-450); RED BLOOD COUNT 3.99 10^6/uL (4.35-5.55); RED CELL DISTRIBUTION WIDTH 13.5 % (11.5-14.0)
[2020-09-22 10:45] LABS: ALBUMIN 3.2 g/dL (3.5-5.0); ALKALINE PHOSPHATASE 107 U/L (38-126); ANION GAP 8 (5-19); ASPARTATE AMINO TRANSFERASE 41 U/L (17-59); BILIRUBIN,DIRECT 0.3 mg/dL (0.0-0.4); BILIRUBIN,TOTAL 0.4 mg/dL (0.2-1.3); BLOOD UREA NITROGEN 2 mg/dL (7-20); CARBON DIOXIDE 30 mmol/L (22-30); CHLORIDE 104 mmol/L (98-107); GLUCOSE 137 mg/dL (75-110); POTASSIUM 3.7 mmol/L (3.6-5.0); TOTAL PROTEIN 6.9 g/dL (6.3-8.2)
[2020-09-22] MEDS: OLANZAPINE 2.5 MG TABLET PO SCH (17:53)
[2020-09-22] MEDS: ENOXAPARIN SODIUM INJ 40 MG/0.4 ML DISP.SYRIN SUBCUT SCH (17:54)
--- NOTE | 2020-09-22 19:45 | PDOC PROGRESS REPORT ---
Subjective Date:: 09/22/20 Subjective:: NAEO. He denies abd pain or N/V. Afebrile. Reason For Visit: POSITIVE BLOOD CULTURE Physical Exam Vital Signs: Temp Pulse Resp BP Pulse Ox 98.2 F 104 H 21 H 117/82 100 09/22/20 15:43 09/22/20 15:43 09/22/20 15:43 09/22/20 15:43 09/22/20 15:43 Intake & Output 09/21/20 09/22/20 09/23/20 06:59 06:59 06:59 Intake Total 1000 2160 480 Balance 1000 2160 480 Weight 60.3 kg 59.2 kg General appearance: PRESENT: no acute distress, cooperative Eye exam: ABSENT: scleral icterus Mouth exam: PRESENT: moist Throat exam: ABSENT: post pharyngeal erythema Neck exam: ABSENT: JVD Respiratory exam: PRESENT: clear to auscultation ortiz Cardiovascular exam: PRESENT: RRR GI/Abdominal exam: PRESENT: normal bowel sounds, soft. ABSENT: tenderness Extremities exam: ABSENT: pedal edema Neurological exam: PRESENT: alert, awake, oriented to person. ABSENT: oriented to place, oriented to time, oriented to situation Psychiatric exam: PRESENT: flat affect Skin exam: ABSENT: jaundice Results Laboratory Results: 09/22/20 10:02 09/22/20 10:02 09/22/20 09/22/20 10:02 10:02 WBC 6.0 RBC 3.99 L Hgb 12.6 L Hct 36.9 L MCV 93 MCH 31.6 MCHC 34.1 RDW 13.5 Plt Count 276 Sodium 141.6 Potassium 3.7 Chloride 104 Carbon Dioxide 30 Anion Gap 8 BUN 2 L Creatinine 0.78 Est GFR ( Amer) > 60 Glucose 137 H Calcium 9.0 Magnesium 1.9 Total Bilirubin 0.4 AST 41 Alkaline Phosphatase 107 Total Protein 6.9 Albumin 3.2 L Lipase 42.6 09/18/20 06:55 Blood Blood Culture (PCR) - Final Staphylococcus Species Impressions: Head CT 09/17/20 20:56 IMPRESSION: Atrophy and chronic small vessel ischemic changes with no acute intracranial abnormality. Abdomen Ultrasound 09/18/20 00:00 IMPRESSION: Cholelithiasis. No definitive cholecystitis. KUB X-Ray 09/19/20 00:00 IMPRESSION: NO RADIOGRAPHIC EVIDENCE FOR ACUTE ABDOMINAL DISEASE. Modified Barium Swallow 09/19/20 00:00 IMPRESSION: NO EVIDENCE OF PENETRATION OR ASPIRATION. PLEASE SEE SPEECH PATHOLOGIST REPORT FOR OTHER FINDINGS AND RECOMMENDATIONS. Chest X-Ray 09/20/20 00:00 IMPRESSION: Atelectasis or early infiltrate right lower lobe. Assessment and Plan - Plan Summary Summary: Mr. Kris Matson is a 69 year old male with past medical history of HTN, HLD, dementia, who is a resident of [facility] and presented by EMS because he was noted by the retirement staff to have poor oral intake and be more lethargic than his baseline. He usually uses a wheelchair but has been having frequent falls. In the ED, he was noted to have normal vitals, urine tox negative, mild leukocytosis and thrombocytosis, mildly elevated liver chemistries and otherwise normal CMP. CT head and chest x-ray were both negative for any acute abnormalities. Covid was negative. He had generalized abdominal tenderness on exam. CT abdomen/pelvis was obtained which came back positive for inflamed, tensile, 4.8 cm diameter gallbladder, small to moderate pericholecystic fluid. RUQ US however showed no evidence of acute cholecystitis, only cholelithiasis. General surgery felt that no surgery was indicated and signed off. Concern for possible AMS: patient has known dementia at baseline and is basical ly bed-and wheel-chair bound. After discussions with retirement staff and family, it appears that he is actually at his baseline mental status. CURRICULUM ADVISORY TEACHER consult was performed with a MBSS due to concern for possible aspiration. He has 2 full thickness abrasions, one to his chest and one to his flank, likely a result of his falls. He has been evaluated by wound care. Blood cultures performed on admission grew 2 different contaminants from two different cultures. He has no evidence of an infection. Antibiotics discontinued. BCx repeated. - Time Time Spent with patient: 35 or more minutes Anticipated Discharge Disposition: [facility] Anticipated Discharge Timeframe: within 24 hours
[2020-09-22] MEDS: MIRTAZAPINE 15 MG TABLET PO SCH (21:44)
[2020-09-23] MEDS: IPRATROPIUM/ALBUTEROL 0.5-2.5 MG/3 ML AMPUL NEB SCH ×2 (01:59→08:31)
[2020-09-23] MEDS: LORAZEPAM 1 MG TABLET PO SCH ×2 (09:49→13:02)
[2020-09-23] MEDS: MULTIVITAMIN TABLET PO SCH (09:50)
[2020-09-23] MEDS: ENOXAPARIN SODIUM INJ 40 MG/0.4 ML DISP.SYRIN SUBCUT SCH (09:51)
[2020-09-23] MEDS: VENLAFAXINE HCL 75 MG CAP.SR.24H PO SCH (09:51)
--- NOTE | 2020-09-23 10:41 | PDOC DISCHARGE SUMMARY ---
Impression - Admit/DC Date/PCP Admission Date/Primary Care Provider: 09/18/20 12:26 ARTHUR CARSON Discharge Date: 09/23/20 - Discharge Diagnosis (1) Acute metabolic encephalopathy Is this a current diagnosis for this admission?: Yes (2) LFTs abnormal Is this a current diagnosis for this admission?: Yes (3) Cholelithiasis Is this a current diagnosis for this admission?: Yes (4) Goals of care, counseling/discussion Is this a current diagnosis for this admission?: Yes (5) Dementia Is this a current diagnosis for this admission?: Yes - Assessment Summary: Mr. Kris Gee is a 69 year old male with advanced dementia, resident of [facility], who presented by EMS because he was noted by the alf staff to have poor oral intake and be more lethargic than his baseline. He usually uses a wheelchair but has been having frequent falls. In the ED, he was noted to have normal vitals and mildly elevated liver chemistries but otherwise normal labs. CT head and chest x-ray were both negative for any acute abnormalities. Covid was negative. He had generalized abdominal tenderness on exam. CT abdomen/pelvis was obtained which notable for possible inflamed gallbladder and small to moderate pericholecystic fluid. RUQ ultrasound was obtained, which showed no evidence of acute cholecystitis, only cholelithiasis. General surgery was consulted and they felt that no surgery was indicated and signed off. His labs normalized and liver chemistries are now back to normal. He may have had a stone which he passed spontaneously, although it remains unclear. Patient has known advanced dementia at baseline and is basically bed-and wheel- chair bound. After discussions with alf staff and family, it appears that he is actually at his baseline mental status. A lengthy goals of care discussion was held with his sister (PONiles), Fabiana Galan, who has requested that his code status be changed to DNR/DNI, and that he be referred to hospice. Given his advanced dementia and bedbound status, he is hospice appropriate. His family would like comfort care measures only and to avoid future hospitalizations. CHILD CARE CENTER ADMINISTRATOR consult was performed with a MBSS due to concern for possible aspiration. This was normal and he remains on a regular diet. He has 2 full thickness abrasions, one to his chest and one to his flank, likely a result of his falls. He has been evaluated by wound care. Blood cultures performed on admission grew 2 different contaminants from two different cultures. He has no evidence of an infection. Antibiotics discontinued. Repeat BCx have shown no growth to date. - Additional Information Resuscitation Status: Comfort Measures Only Discharge Diet: Regular Discharge Activity: Activity As Tolerated Referrals: SID LU PA [Primary Care Provider] - Home Medications: Lorazepam [Ativan] 1 mg PO TID 01/29/19 Mirtazapine [Remeron] 30 mg PO QHS 09/18/20 Multivitamin [Tab-A-Tanya (Multiple Vitamin) Tablet] 1 tab PO DAILY 09/18/20 Olanzapine [Zyprexa 2.5 mg Tablet] 1.25 mg PO WSUPPER 09/18/20 Venlafaxine HCl ER [Effexor Xr 75 mg Cap.sr] 150 mg PO DAILY 09/18/20 Acetaminophen [Tylenol 325 mg Tablet] 325 mg PO Q4HP PRN tablet 09/23/20 Ondansetron [Zofran Odt 4 mg Tablet] 4 mg PO Q4HP PRN tab.rapdis 09/23/20 History of Present Illiness History of Present Illness: KRIS GEE is a 69 year old male Physical Exam Vital Signs: Temp Pulse Resp BP Pulse Ox 98.6 F 85 16 109/70 98 09/23/20 07:29 09/23/20 08:30 09/23/20 08:30 09/23/20 07:26 09/23/20 08:30 Intake & Output 09/22/20 09/23/20 09/24/20 06:59 06:59 06:59 Intake Total 2160 730 1000 Balance 2160 730 1000 Weight 59.2 kg 58.7 kg Results Laboratory Results: WBC 6.0 10^3/uL (4.0-10.5) 09/22/20 10:02 RBC 3.99 10^6/uL (4.35-5.55) L 09/22/20 10:02 Hgb 12.6 g/dL (13.5-17.0) L 09/22/20 10:02 Hct 36.9 % (37.9-51.0) L 09/22/20 10:02 MCV 93 fl (80-97) 09/22/20 10:02 MCH 31.6 pg (27.0-33.4) 09/22/20 10:02 MCHC 34.1 g/dL (32.0-36.0) 09/22/20 10:02 RDW 13.5 % (11.5-14.0) 09/22/20 10:02 Plt Count 276 10^3/uL (150-450) 09/22/20 10:02 Lymph % (Auto) 28.0 % (13-45) 09/20/20 06:14 Johnson % (Auto) 8.0 % (3-13) 09/20/20 06:14 Eos % (Auto) 5.5 % (0-6) 09/20/20 06:14 Baso % (Auto) 0.4 % (0-2) 09/20/20 06:14 Absolute Neuts (auto) 4.2 10^3/uL (1.7-8.2) 09/20/20 06:14 Absolute Lymphs (auto) 2.0 10^3/uL (0.5-4.7) 09/20/20 06:14 Absolute Monos (auto) 0.6 10^3/uL (0.1-1.4) 09/20/20 06:14 Absolute Eos (auto) 0.4 10^3/uL (0.0-0.6) 09/20/20 06:14 Absolute Basos (auto) 0.0 10^3/uL (0.0-0.2) 09/20/20 06:14 Seg Neutrophils % 58.1 % (42-78) 09/20/20 06:14 Sodium 141.6 mmol/L (137-145) 09/22/20 10:02 Potassium 3.7 mmol/L (3.6-5.0) 09/22/20 10:02 Chloride 104 mmol/L (98-107) 09/22/20 10:02 Carbon Dioxide 30 mmol/L (22-30) 09/22/20 10:02 Anion Gap 8 (5-19) 09/22/20 10:02 BUN 2 mg/dL (7-20) L 09/22/20 10:02 Creatinine 0.78 mg/dL (0.52-1.25) 09/22/20 10:02 Est GFR ( Amer) > 60 (>60) 09/22/20 10:02 Est GFR (Non-Af Amer) Cancelled 09/19/20 06:02 Est GFR (MDRD) Non-Af > 60 (>60) 09/22/20 10:02 Glucose 137 mg/dL (75-110) H 09/22/20 10:02 Calcium 9.0 mg/dL (8.4-10.2) 09/22/20 10:02 Magnesium 1.9 mg/dL (1.6-2.3) 09/22/20 10:02 Total Bilirubin 0.4 mg/dL (0.2-1.3) 09/22/20 10:02 Direct Bilirubin 0.3 mg/dL (0.0-0.4) 09/22/20 10:02 Neonat Total Bilirubin Not Reportable 09/22/20 10:02 Neonat Direct Bilirubin Not Reportable 09/22/20 10:02 Neonat Indirect Bili Not Reportable 09/22/20 10:02 AST 41 U/L (17-59) 09/22/20 10:02 ALT 56 U/L (<50) H 09/22/20 10:02 Alkaline Phosphatase 107 U/L (38-126) 09/22/20 10:02 Ammonia < 8.7 umol/L (9-33) L 09/18/20 01:41 Total Protein 6.9 g/dL (6.3-8.2) 09/22/20 10:02 Albumin 3.2 g/dL (3.5-5.0) L 09/22/20 10:02 Lipase 42.6 U/L (23-300) 09/22/20 10:02 EGFR Cancelled 09/19/20 06:02 Urine Color YELLOW 09/17/20 22:30 Urine Appearance SLIGHTLY-CLOUDY 09/17/20 22:30 Urine pH 5.0 (5.0-9.0) 09/17/20 22:30 Ur Specific [place] 1.024 09/17/20 22:30 Urine Protein 30 mg/dL (NEGATIVE) H 09/17/20 22:30 Urine Glucose (UA) NEGATIVE mg/dL (NEGATIVE) 09/17/20 22:30 Urine Ketones NEGATIVE mg/dL (NEGATIVE) 09/17/20 22:30 Urine Blood NEGATIVE (NEGATIVE) 12/28/20 22:30 Urine Nitrite NEGATIVE (NEGATIVE) 09/17/20 22:30 Urine Bilirubin NEGATIVE (NEGATIVE) 09/17/20 22:30 Urine Urobilinogen NEGATIVE mg/dL (<2.0) 09/17/20 22:30 Ur Leukocyte Esterase NEGATIVE (NEGATIVE) 09/17/20 22:30 Urine WBC (Auto) 3 /HPF 09/17/20 22:30 Urine RBC (Auto) 2 /HPF 09/17/20 22:30 Squamous Epi Cells Auto 1 /HPF 09/17/20 22:30 Urine Mucus (Auto) MANY /LPF 09/17/20 22:30 Urine Ascorbic Acid NEGATIVE (NEGATIVE) 09/17/20 22:30 Urine Opiates Screen NEGATIVE 09/17/20 22:30 Urine Methadone Screen NEGATIVE 09/17/20 22:30 Ur Barbiturates Screen NEGATIVE 09/17/20 22:30 Ur Phencyclidine Scrn NEGATIVE 09/17/20 22:30 Ur Amphetamines Screen NEGATIVE 09/17/20 22:30 U Benzodiazepines Scrn NEGATIVE 09/17/20 22:30 Urine Cocaine Screen NEGATIVE 09/17/20 22:30 U Marijuana (THC) Screen NEGATIVE 09/17/20 22:30 Influenza A (RT-PCR) NEGATIVE (NEGATIVE) 09/18/20 11:45 Influenza B (RT-PCR) NEGATIVE (NEGATIVE) 09/18/20 11:45 RSV (RT-PCR) NEGATIVE (NEGATIVE) 09/18/20 11:45 SARS-CoV-2 Rap RNA(RT-PCR) NEGATIVE (NEGATIVE) 09/18/20 11:45 Impressions: Head CT 09/17/20 20:56 IMPRESSION: Atrophy and chronic small vessel ischemic changes with no acute intracranial abnormality. Chest X-Ray 09/17/20 20:59 IMPRESSION: No acute disease. Abdomen Ultrasound 09/18/20 00:00 IMPRESSION: Cholelithiasis. No definitive cholecystitis. KUB X-Ray 09/19/20 00:00 IMPRESSION: NO RADIOGRAPHIC EVIDENCE FOR ACUTE ABDOMINAL DISEASE. Modified Barium Swallow 09/19/20 00:00 IMPRESSION: NO EVIDENCE OF PENETRATION OR ASPIRATION. PLEASE SEE SPEECH PATHOLOGIST REPORT FOR OTHER FINDINGS AND RECOMMENDATIONS. Chest X-Ray 09/20/20 00:00 IMPRESSION: Atelectasis or early infiltrate right lower lobe. Stroke Is this a Stroke Patient?: No Acute Heart Failure Is this a Heart Failure Patient?: No
[2020-09-23 13:37] VITALS: BP 114/76
== END 2020-09-23 13:50 | DRG 444 ==
LOC: ER 20:02 → EH 09-18 00:38 → 5TH 09-18 10:46 → OBSVTOIN 09-18 12:26 → 5 09-18 18:48 → 4S 09-19 19:50
PROVIDERS: ADMIT Internal Medicine; ATTEND Hospitalist
DX: K80.20 Calculus of gallbladder without cholecystitis without obstruction (principal); G93.41 Metabolic encephalopathy; N17.9 Acute kidney failure, unspecified; F03.90 Unspecified dementia, unspecified severity, without behavioral disturbance, psychotic disturbance, mood disturbance, and anxiety; R10.84 Generalized abdominal pain; Z66 Do not resuscitate; Z51.5 Encounter for palliative care; S20.319A Abrasion of unspecified front wall of thorax, initial encounter; S30.811A Abrasion of abdominal wall, initial encounter; W19.XXXA Unspecified fall, initial encounter; I10 Essential (primary) hypertension; F31.9 Bipolar disorder, unspecified; D47.3 Essential (hemorrhagic) thrombocythemia; D72.829 Elevated white blood cell count, unspecified; E66.9 Obesity, unspecified; E87.5 Hyperkalemia; R94.5 Abnormal results of liver function studies; R05 Cough; Z71.89 Other specified counseling; Z91.81 History of falling; Z11.59 Encounter for screening for other viral diseases; Z74.01 Bed confinement status; Z99.3 Dependence on wheelchair; Z79.899 Other long term (current) drug therapy
CPT/HCPCS: 36415; 70450; 71045; 74018; 74176; 74230; 76705; 80053; 80307; 81001; 82140; 83690; 83735; 85025; 85027; 87040; 87077; 87150; 87186; 93005; 93010; 96360; 99285; 0241U; C9803; G0378; J0696; J1650; J2543; J3370; J3490; J7040; J7050; J7060